=== PATIENT | female | born 1975 ===

== ENCOUNTER 2016-10-01 11:51 | Inpatient (IN) | payer OTHER, MEDICAID ==
[2016-10-01 11:51] VITALS: BMI 36.0
[2016-10-01 12:47] LABS: BASO # 0.1 K/uL (0.0-0.2); BASO % 0.6 % (0.0-2.0); EOS # 0.2 K/uL (0.0-0.7); EOS % 1.5 % (0.0-4.0); HEMATOCRIT 40.1 % (34.0-47.0); LYMPH # 4.1 K/uL (1.0-4.3); LYMPH % 31.7 % (20.0-40.0); MEAN CELL VOLUME 82.7 fL (81.0-99.0); MEAN CORPUSCULAR HEMOGLOBIN 27.1 pg (27.0-31.0); MEAN CORPUSCULAR HGB CONC 32.7 g/dL (33.0-37.0); MEAN PLATELET VOLUME 9.5 fL (7.2-11.7); MONO # 0.8 K/uL (0.0-0.8); MONO % 6.6 % (0.0-10.0); NRBC % 0.1 % (0.0-2.0); RED CELL DISTRIBUTION WIDTH 15.6 % (11.5-14.5); WHITE BLOOD COUNT 12.8 K/uL (4.8-10.8)
[2016-10-01 12:50] LABS: RBC URINE 219 /hpf (0-3); URINE BILIRUBIN NEGATIVE (NEGATIVE); URINE BLOOD 3+ (NEGATIVE); URINE CALCIUM OXALATE CRYSTALS FEW /hpf (<OCC); URINE COLOR Yellow (YELLOW); URINE GLUCOSE (UA) 2+ mg/dL (Normal); URINE KETONE TRACE mg/dL (NEGATIVE); URINE LEUKOCYTE ESTERASE NEG Leu/uL (Negative); URINE PROTEIN 1+ mg/dL (NEGATIVE); URINE UROBILINOGEN NORMAL mg/dL (0.2-1.0); WBC URINE 4 /hpf (0-5)
[2016-10-01 12:55] LABS: CHLORIDE 104 mmol/L (98-107)
[2016-10-01 12:56] LABS: POTASSIUM 3.9 mmol/L (3.6-5.2); SODIUM 140 mmol/L (132-148)
[2016-10-01 12:58] LABS: ALB/GLOB RATIO 1.1 (1.0-2.1); ALKALINE PHOSPHATASE 77 U/L (38-126); AST/SGOT 28 U/L (14-36); BILIRUBIN,TOTAL 0.9 mg/dL (0.2-1.3); BLOOD UREA NITROGEN 11 mg/dL (7-17); CARBON DIOXIDE 22 mmol/L (22-30); GFR AFRICAN-AMERICAN > 60; TOTAL PROTEIN 7.2 g/dL (6.3-8.3)
[2016-10-01 12:59] LABS: ALCOHOL SERUM < 10 mg/dl (0-10); ALT/SGPT 39 U/L (9-52); GLUCOSE,RANDOM 207 mg/dL (65-105)
--- NOTE | 2016-10-01 13:01 | C.PDOC ---
History Of Present Illness 41 year old female with a Hx of diabetes and depression who presents to the ER with a complaint of feeling overwhelmed and suicidal with a potential plan of jumping off building. Patient states she is trying to improve her life; she reports she is going back to school, does not have her child with her, and feels like it is all too much for her. Denies physical complaints at this time. Time Seen by Provider: 10/01/16 12:08 Chief Complaint (Nursing): Psychiatric Evaluation History Per: Patient History/Exam Limitations: no limitations Onset/Duration Of Symptoms: Days Current Symptoms Are (Timing): Still Present Suicide/Self Injury Attempted (Context): None Modifying Factor(s): None Severity: None Pain Scale Rating Of: 0 Associated Symptoms: Depression, Suicidal Thoughts, Suicidal Plan Involuntary Hold By: None Recent travel outside of the [place]: No Past Medical History Reviewed: Historical Data, Nursing Documentation, Vital Signs Vital Signs: Last Vital Signs Temp 98.2 F 10/01/16 11:57 Pulse 90 10/01/16 11:57 Resp 18 10/01/16 11:57 BP 142/89 10/01/16 11:57 Pulse Ox 100 10/01/16 14:00 - Medical History PMH: Anemia, Anxiety, Asthma, Back Problems (scoliosis), Bronchitis, CVA (left- sided), Depression, Diabetes, Gastritis, HTN, Hypercholesterolemia, Migraine, Peripheral Edema (LEFT LEG), Seizures, Chronic Pain (back) Surgical History: Endoscopy - [facility] Procedures GROUP PSYCHOTHERAPY (04/05/16) INDIVIDUAL PSYCHOTHERAPY, COGNITIVE-BEHAVIORAL (04/05/16) INDIVIDUAL PSYCHOTHERAPY, SUPPORTIVE (04/05/16) INJECT/INFUSE NEC (05/09/13) Family History: States: Unknown Family Hx, Diabetes, Hypertension - Social History Hx Tobacco Use: Yes Hx Alcohol Use: No Hx Substance Use: Yes - Immunization History Hx Tetanus Toxoid Vaccination: Yes (2 years ago) Hx Influenza Vaccination: Yes Hx Pneumococcal Vaccination: Yes Review Of Systems Constitutional: Negative for: Fever, Chills Gastrointestinal: Negative for: Nausea, Vomiting, Diarrhea Psych: Positive for: Depression, Suicidal ideation Physical Exam - Physical Exam Appears: Non-toxic Skin: Normal Color, Warm, Dry Head: Atraumatic, Normacephalic Oral Mucosa: Moist Chest: Symmetrical, No Tenderness Cardiovascular: Rhythm Regular, No Murmur Respiratory: Normal Breath Sounds, No Rales, No Rhonchi, No Wheezing Gastrointestinal/Abdominal: Soft, No Tenderness Neurological/Psych: Oriented x3, Normal Speech, Normal Cognition ED Course And Treatment - Laboratory Results Result Diagrams: 10/01/16 12:43 10/01/16 12:43 O2 Sat by Pulse Oximetry: 100 (Room air) Pulse Ox Interpretation: Normal Medical Decision Making Medical Decision Making: Plan: * Urine drug screen * Crisis consulted Patient accepted for psychiatric admission. Disposition - Disposition Disposition: HOSPITALIZED Disposition Time: 13:59 Condition: STABLE - Clinical Impression Clinical Impression: Suicidal ideation - Scribe Statement The provider has reviewed the documentation as recorded by the Scribe Jesus Alegria All medical record entries made by the Scribe were at my direction and personally dictated by me. I have reviewed the chart and agree that the record accurately reflects my personal performance of the history, physical exam, medical decision making, and the department course for this patient. I have also personally directed, reviewed, and agree with the discharge instructions and disposition. Decision To Admit - Pt Status Changed To: Hospital Disposition Of: Inpatient - Admit Certification Admit to Inpatient:: After my assessment, the patient will require hospitalization for at least two midnights. This is because of the severity of symptoms shown, intensity of services needed, and/or the medical risk in this patient being treated as an outpatient. - InPatient: Physician Admission Certification: I certify that this patient requires 2 or more midnights of care for the following reason:: suicidal ideations - . Bed Request Type: Psychiatry Patient Diagnosis: Suicidal ideation
--- NOTE | 2016-10-01 15:24 | PCM.BM ---
<Bianca King - Last Filed: 10/01/16 15:21> Treatment Plan Problems - Problems identified on initial assessmt Depression Date Initiated: 10/01/16 Time Initiated: 15:21 Assessment reference: NA Status: Active Suicidal Ideation Date Initiated: 10/01/16 Time Initiated: 15:24 Assessment reference: NA Status: Active Treatment assets and liabiliti Patient Assests: cooperative, ADL independent, physically healthy, cognitively intact Patient Liabilities: live alone, poor support system, substance abuse (THC) - Milieu Protocol Maintain good personal hygiene: daily Encourage regular showers, daily Remind patient to perform daily oral care, other Assist patient to perform ADL's (Self) Conduct patient checks and document Observation sheet: Q15 minutes (For Safety) Maintain personal safety: every shift Educate patient to report safety concerns to staff, every shift Monitor environment for contraband/sharps Medication safety: Monitor for expected outcome, potential side effects: every shift, Assess barriers to learning: every shift, Assess readiness for medication education: every shift <Margo Jarquin - Last Filed: 10/03/16 11:15> Family Contact Family involvement: Famliy/SO not involved - Goals for Treatment Patient goals for treatment: "I need an outpatient program." Discharge/Continuing Care - Education Needs Education Needs: Patient Medication, Patient Coping Skills - Discharge Discharge Criteria: Tolerates medication w/o severe side effects, Free of Suicidal thoughts, Reduction of target symptoms Discharge to:: Home - Treatment Team Participation Discussed with Family/SO: No Was Patient/Family/SO present at Treatment Team Meeting: Yes <Barbi Long - Last Filed: 10/03/16 14:34>
[2016-10-01] MEDS: Divalproex 250 mg DR Tab PO SCH (21:21)
[2016-10-02] MEDS: Divalproex 250 mg DR Tab PO SCH ×2 (10:22→17:33)
[2016-10-02] MEDS: Hydrocortisone 1% Cream (30 GM) TOP SCH (20:05)
--- NOTE | 2016-10-02 23:06 | PCM.PSYCH ---
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 Pt was admitted to the psych unit on after feeling "depressed". Pt was discharged with medication the following meds and f/u plan with the CR. Benztropine [Cogentin] 1 mg PO BID #60 tab Divalproex [Depakote DR (*BID*)] 500 mg PO BID #60 ect traZODone [Desyrel] 100 mg PO HS #30 tab Haloperidol [Haldol] 10 mg PO BID #60 tab Pt stated that she is not compliant with the treatment, because she is feeling good. She stated that she is smoking 2-3 blunts on daily basis, to keep herself calm. Pt came to the hospital yesterday because of worsening of depressive symptoms with suicidal ideation to jump from building . Pt states she continues to have suicidal ideation and command hallucinations telling her to " kill yourself" and "it's time to ." Pt also reports persistence of manic symptoms for the last 3-4 weeks such as insomnia, increased energy, distractibility, flight of ideas, difficulty concentrating. She feels like her "brain is scattered" which makes it difficult to complete tasks. Yesterday the patient also developed severe anxiety, paranoia, and sadness after knowing that her brother inlaw had an argument with his father. Pt reports like she feels someone or something is following her and is out to get her. Pt denies homicidal ideation and visual hallucinations. Current Medications: Active Medications Generic Name Dose Route Start Last Admin Trade Name Freq PRN Reason Stop Dose Admin Benztropine Mesylate 1 mg 10/01/16 19:00 10/02/16 10:23 Cogentin PO 1 mg DAILY DOLLY Administration Divalproex Sodium 250 mg 10/01/16 19:00 10/02/16 17:[address] PO 250 mg BID DOLLY Administration Haloperidol 5 mg 10/01/16 19:00 10/02/16 17:33 Haldol PO 5 mg BID DOLLY Administration Hydrocortisone 1 gm 10/02/16 18:00 10/02/16 20:05 Cortizone 1% Cream TOP 1 % BID DOLLY Administration Hydroxyzine HCl 25 mg 10/01/16 18:55 10/01/16 21:21 Atarax PO 25 mg Q6H PRN Administration Anxiety Pneumococcal Polyvalent Vaccine 0.5 ml 10/04/16 10:00 Pneumovax 23 Vaccine IM 10/04/16 10:01 .ONCE ONE Trazodone HCl 50 mg 10/01/16 18:51 Desyrel PO HS PRN Insomnia Past Psychiatric History - Past Psychiatric History Prior Professional Help: multiple inpat admission Prior Psychiatric Treatment: inpatient and out ptient treatment At [facility]: [facility] Duration: few days, last admission 03/2016 Nature of Treatment: meds management Explanation of prior treatment: non compliance with meds History of Abuse: denied History of ETOH/Drug Use: denied History of Family Illness: denied Pertinent Medical Hx (Current Medical&Sleep Prob, Allergies): Allergies Allergy/AdvReac Type Severity Reaction Status Date / Time Penicillins Allergy RASH Verified 10/01/16 12:00 lactose AdvReac VOMITING Verified 10/01/16 12:00 RX: No Known Home Med 10/01/16 Review of Systems - Review of Systems All systems: reviewed and no additional remarkable complaints except ( psychiatric symptoms in HPI) Mental Status Examination - Personal Presentation Personal Presentation: Looks stated age, Dressed appropriate to season - Affect Affect: Constricted - Motor Activity Motor Activity: Calm - Reliability in Providing Information Reliability in Providing Information: Fair - Speech Speech: Organized - Mood Mood: Depressed - Formal Thought Process Formal Thought Process: Hallucinations - Hallucinations/Delusions Hallucinations: Auditory - Cognitive Functions Orientation: Person, Place, Situation, Time Attention/Concentration: Attentive Abstract Thinking: [place] Judgement: Intact, as evidence by: Good judgement, Intact, as evidence by: Insight regarding need for hospitalization Memory: Recent intact, as evidence by: 3/3 object recall - Risk Additional comments: presently she denied SI, HI, intent or plan - Strength & Assets Inventory Strength & Assets Inventory: Intelligence, Family support, Education, Interests/ hobbies, Cooperative - Limitations Limitations: Other (chronic mental illness) DSM 5 DX - DSM 5 DSM 5 Diagnosis: Bipolar disorder, mixed type with psychotic features, Cannabis use d/o - Recommended/Plan of Treatment Treatment Recommendations and Plan of Treatment: - CBT - Psychoeducation - Group and supportive therapy - Depakote 250 PO BID - Trazodone 50 mg PO HS - Haldol 5 mg by mouth twice a day - PRN Meds Medication including alternative choices, benefits and s/e were discussed with the pt and pt verbalized understanding and in agreement to start the treatment. Projected ELOS: 5-7 days Prognosis: fair with treatment Discharge Plan and Discharge Criteria: Improvement in symptoms, no suicidal ideation, no bailee - Smoking Cessation Smoking Cessation Initiated: Yes
[2016-10-03 08:01] VITALS: RESP 16; TEMP 98; O2SAT 99
[2016-10-03] MEDS: Divalproex 250 mg DR Tab PO SCH ×2 (10:29→17:17)
[2016-10-03] MEDS: Hydrocortisone 1% Cream (30 GM) TOP SCH ×2 (10:32→17:17)
--- NOTE | 2016-10-03 11:16 | PCM.PYCHPN ---
Psychiatric Progress Note - Psychiatric Progress Note Patient seen today, length of contact: 16 min Patient Chief Complaint: I'm feeling better Problems Identified/Issues Discussed: Patient seen and evaluated, chart reviewed and discussed with the nurse. Today patient reports a bit improvement in her mood but still remained isolated , withdrawn and confined to her room. However she denies any suicidal ideation or homicidal ideation. She reports improvement in her agitation and irritability. She is taking medications and denies any side effects. Today patient signed 48 hours notice. Supportive therapy and psychoeducation were given. Medication Change: No Medical Record Reviewed: Yes Mental Status Examination - Cognitive Function Orientation: Person, Place, Situation, Time Memory: Intact Attention: WNL Concentration: Poor Association: WNL Fund of Knowledge: Poor - Mood Mood: Depressed, Anxious - Affect Affect: Constricted - Formal Thought Process Formal Thought Process: No Impairment - Suicidal Ideation Suicidal Ideation: No - Homicidal Ideation Homicidal Ideation: No Goal/Treatment Plan - Goal/Treatment Plan Need for Continued Stay: Discharge may exacerbated symptoms, Severe functional impairment Progress Toward Problem(s) and Goals/Treatment Plan: Bipolar disorder, mixed type with psychotic features, Cannabis use d/o - CBT - Psychoeducation - Group and supportive therapy - Depakote 250 PO BID - Trazodone 50 mg PO HS - d/c Haldol 5 mg by mouth twice a day - PRN Meds Medication including alternative choices, benefits and s/e were discussed with the pt and pt verbalized understanding and in agreement to start the treatment. - Smoking Cessation Smoking Cessation Initiated: No
[2016-10-03 15:48] VITALS: BP 124/77; PULSE 80
[2016-10-03] MEDS: Aluminum Hydroxide/Magnesium Hydroxide Susp (30 mL) PO PRN (19:55)
--- NOTE | 2016-10-04 09:53 | PCM.PYCHDC ---
Mental Status Examination - Mental Status Examination Orientation: Person, Place, Situation, Time Memory: Intact Mood: Neutral Affect: Constricted Speech: Soft Attention: WNL Concentration: WNL Association: WNL Fund of Knowledge: WNL Formal Thought Process: No Impairment Description of patient's judgement and insight: good, fair Psychotic Thoughts and Behaviors: deniers any AVH Suicidal Ideation: No Current Homicidal Ideation?: No Discharge Summary - Discharge Note Reason for Hospitalization: Pt is a 41 year old female, but currently , has 4 kids , currently living with a friend, unemployed but previously worked for a [employer], studying GED in school. Pt was admitted to the psych unit on after feeling "depressed". Pt was discharged with medication the following meds and f/u plan with the CR. Benztropine [Cogentin] 1 mg PO BID #60 tab Divalproex [Depakote DR (*BID*)] 500 mg PO BID #60 ect traZODone [Desyrel] 100 mg PO HS #30 tab Haloperidol [Haldol] 10 mg PO BID #60 tab Pt stated that she is not compliant with the treatment, because she is feeling good. She stated that she is smoking 2-3 blunts on daily basis, to keep herself calm. Pt came to the hospital yesterday because of worsening of depressive symptoms with suicidal ideation to jump from building . Pt states she continues to have suicidal ideation and command hallucinations telling her to " kill yourself" and "it's time to ." Pt also reports persistence of manic symptoms for the last 3-4 weeks such as insomnia, increased energy, distractibility, flight of ideas, difficulty concentrating. She feels like her "brain is scattered" which makes it difficult to complete tasks. Yesterday the patient also developed severe anxiety, paranoia, and sadness after knowing that her brother donna had an argument with his father. Pt reports like she feels someone or something is following her and is out to get her. Pt denies homicidal ideation and visual hallucinations. Psychiatric History (includes Medical, Family, Personal Hx): meds management Consultations:: List each consultation separately and include: 1. Reason for request. 2. Findings. 3. Follow-up Summary of Hospital Course include:: 1. Description of specific treatment plan utilized for patients during their course of treatmen. 2. Summarize the time- course for resolution of acute symptoms and/or regressed behaviors. 3. Describe issues identified and worked on during hospitalization. 4. Describe medication utilized. 5. Describe medical problems identified and treated. 6. Reassessment of suicide risk Summary of Hospital Course: During the course of her stay, patient (pt) started progressively improving and she no longer remained irritable, anxious and paranoid. Her mood and paranoia were improved and she started attending groups and meetings and started socializing. She signed a 48 hours notice. Patient denied any feelings of hopelessness, helplessness, and worthlessness, denied any problem with the sleep or appetite, denied suicidal ideation or homicidal ideation. Pt denied any auditory or visual hallucinations. Some changes were made in her current medications and patient was discharged on following medications. She tolerated these medications very well and denied any side effects. - Final Diagnosis (DSM 5) Condition upon Discharge: STABLE DSM 5: Bipolar disorder, mixed type with psychotic features, Cannabis use d/o Disposition: HOME/ ROUTINE Follow-up Treatment Plan: Education: Pt was educated and counseled about the risks and benefits of taking and not taking medications. Pt was educated and counseled about the risks of drinking and abusing drugs. Pt was educated and counseled to go to the ER or call 911 if pt develop suicidal ideation or homicidal ideation, worsening of symptoms or severe side effects of the meds. Prescriptions/Medication Reconciliation: Divalproex [Depakote DR] 250 mg PO BID 14 Days traZODone [Desyrel] 50 mg PO HS PRN #14 tab PRN Reason: Insomnia - Smoking Cessation Smoking Cessation Medication prescribed: No - Antipsychotic Medications Pt discharged on 2 or more routine antipsychotic medications: No
[2016-10-04] MEDS ORDERED: Pneumococcal 23-Valent Vaccine IM ONE (10:00)
[2016-10-04] MEDS: Hydrocortisone 1% Cream (30 GM) TOP SCH (10:09)
[2016-10-04] MEDS: Divalproex 250 mg DR Tab PO SCH (10:10)
[2016-10-04] MEDS: Aluminum Hydroxide/Magnesium Hydroxide Susp (30 mL) PO PRN (11:54)
== END 2016-10-04 12:25 | disposition home or self-care (01) | DRG 430 ==
LOC: C.ER 11:51 → C.5E 14:00
PROVIDERS: ADMIT Psychiatry & Neurology Psychiatry; ATTEND Psychiatry & Neurology Psychiatry
PROC: GZ3ZZZZ Medication Management (ICD-10-PCS; principal; 2016-10-01)
PROC: GZHZZZZ Group Psychotherapy (ICD-10-PCS; 2016-10-01)
PROC: GZ56ZZZ Individual Psychotherapy, Supportive (ICD-10-PCS; 2016-10-01)
DX: F31.64 Bipolar disorder, current episode mixed, severe, with psychotic features (principal); R45.851 Suicidal ideations; F12.90 Cannabis use, unspecified, uncomplicated; F17.210 Nicotine dependence, cigarettes, uncomplicated; Z91.14 Patient's other noncompliance with medication regimen; I10 Essential (primary) hypertension; E11.9 Type 2 diabetes mellitus without complications; J45.909 Unspecified asthma, uncomplicated; G89.29 Other chronic pain

== ENCOUNTER 2016-10-09 13:14 | Emergency (ER) | payer MEDICAID, OTHER ==
[2016-10-09 13:27] VITALS: RESP 18
[2016-10-09 13:34] VITALS: BMI 42.9
--- NOTE | 2016-10-09 13:36 | C.PDOC ---
History Of Present Illness 41 yr old female with PMHx of diverticulitis and internal hemorrhoids on colonoscopy 1 year ago, presents to ER with complaints of multiple episode of diarrhea since morning and 1 episode of diarrhea with bright red blood per rectum. Also reports of mild suprapubic tenderness and some dysuria. Patient denies fever, chills, chest pain, SOB, nausea, vomiting, hematuria, vaginal discharge or back pain. PMD: Dr. Villanueva. Time Seen by Provider: 10/09/16 13:19 Chief Complaint (Nursing): Female Genitourinary History Per: Patient History/Exam Limitations: no limitations Onset/Duration Of Symptoms: Sudden Onset (Since morning) Current Symptoms Are (Timing): Still Present Past Medical History Reviewed: Historical Data, Nursing Documentation, Vital Signs Vital Signs: Last Vital Signs Temp 98.2 F 10/09/16 13:18 Pulse 86 10/09/16 13:18 Resp 18 10/09/16 13:18 BP 134/90 10/09/16 13:18 Pulse Ox 99 10/09/16 16:13 - Medical History PMH: Anemia, Anxiety, Asthma, Back Problems (scoliosis), Bronchitis, CVA (left- sided), Depression (hosp depression x2), Diabetes, Gastritis, HTN, Hypercholesterolemia, Migraine, Peripheral Edema (LEFT LEG), Seizures (6 mo ago) , Chronic Pain (back) Surgical History: Endoscopy - [facility] Procedures GROUP PSYCHOTHERAPY (10/01/16) INDIVIDUAL PSYCHOTHERAPY, COGNITIVE-BEHAVIORAL (04/05/16) INDIVIDUAL PSYCHOTHERAPY, SUPPORTIVE (10/01/16) INJECT/INFUSE NEC (05/09/13) MEDICATION MANAGEMENT (10/01/16) Family History: States: Diabetes, Hypertension - Social History Hx Tobacco Use: Yes Hx Alcohol Use: No Hx Substance Use: Yes - Immunization History Hx Tetanus Toxoid Vaccination: Yes (2 years ago) Hx Influenza Vaccination: Yes Hx Pneumococcal Vaccination: Yes Review Of Systems Except As Marked, All Systems Reviewed And Found Negative. Constitutional: Negative for: Fever, Chills Cardiovascular: Negative for: Chest Pain, Palpitations, Orthopnea, Edema, Light Headedness Respiratory: Negative for: Shortness of Breath, SOB with Excertion, Wheezing Gastrointestinal: Positive for: Abdominal Pain (Mild superpubic ), Diarrhea ( Multiple episodes, 1 episode with bright red blood per rectum ). Negative for: Nausea, Vomiting Genitourinary: Positive for: Dysuria. Negative for: Hematuria, Vaginal Discharge Musculoskeletal: Negative for: Back Pain Neurological: Negative for: Weakness, Numbness Physical Exam - Physical Exam Appears: Well, Non-toxic, No Acute Distress Skin: Warm, Dry, No Rash Head: Atraumatic, Normacephalic Eye(s): bilateral: Normal Inspection, PERRL, EOMI Oral Mucosa: Moist Neck: Normal, Supple Chest: Symmetrical, No Tenderness Cardiovascular: Rhythm Regular, No Murmur Respiratory: Normal Breath Sounds, No Rales, No Rhonchi, No Wheezing Gastrointestinal/Abdominal: Soft, No Tenderness, No Distention, No Guarding, No Rebound Rectal: Rectal Tone (Normal ), Hemorrhoids (External ), Other (No gross blood. ) Back: Normal Inspection, No CVA Tenderness Extremity: Normal ROM, No Swelling Neurological/Psych: Oriented x3, Normal Speech, Normal Motor Gait: Steady ED Course And Treatment - Laboratory Results Result Diagrams: 10/09/16 13:50 10/09/16 13:50 O2 Sat by Pulse Oximetry: 99 (RA ) Pulse Ox Interpretation: Normal - CT Scan/US CT - Abd & Pelvis Other Rad Studies (CT/US): Read By Radiologist, Radiology Report Reviewed CT/US Interpretation: PROCEDURE: CT Abdomen and Pelvis with contrast. HISTORY : L sided abdominal pain. COMPARISON: CT abdomen pelvis without contrast performed 04/03/12. TECHNIQUE: Contrast dose: 100 cc Visipaque 320. Radiation dose: Total exam DLP = 1198.14 mGy-cm. This CT exam was performed using one or more of the following dose reduction techniques: Automated exposure control, adjustment of the mA and/or kV according to patient size, and/or use of iterative reconstruction technique. FINDINGS: LOWER THORAX: Unremarkable. LIVER: Hepatomegaly. Hypoattenuation of the liver compatible with hepatic steatosis. GALLBLADDER AND BILE DUCTS: Unremarkable. PANCREAS: Unremarkable. SPLEEN: 7 mm probable splenule. Otherwise unremarkable. ADRENALS: Unremarkable. KIDNEYS AND URETERS: The kidneys enhance symmetrically. No hydronephrosis or obstructing calculus identified. VASCULATURE: No aortic aneurysm. BOWEL: Stomach is nondistended. Lack of oral contrast limits evaluation for bowel pathology. Bowel loops appear within normal limits of caliber without evidence of obstruction. APPENDIX: The appendix appears within normal limits of caliber. No secondary signs of acute appendicitis. PERITONEUM: No significant free fluid. No definite free air. LYMPH NODES: No bulky adenopathy. BLADDER: Unremarkable. REPRODUCTIVE: The uterus is present. Probable bilateral ovarian cysts. BONES: No acute osseous abnormality is detected. OTHER FINDINGS: None. IMPRESSION: Hepatomegaly. Hepatic steatosis. Probable bilateral ovarian cysts. Pelvic ultrasound may be considered if indicated. Medical Decision Making Medical Decision Making: PLAN: * CT - Abd & Pelvis * CBC * CMP * HCG * Urinalysis * Pepcid PO * Toradol IVP * Sodium Chloride IV 2:40PM Labs grossly normal but UA consistent with uti 4:00PM CT negative. Patient has had recent colonoscopy. Hgb WNL. No additional bowel movements in ED. Abdomen soft NT/ND on reevaluation. Vitals WNL. Monitored for 3 hours. Dc home to follow-up with GI. Made aware of ovarian cysts and reports that she has regular playground equipment erector follow-up with normal pap last year Disposition - Disposition Disposition: HOME/ ROUTINE Disposition Time: 16:00 Condition: FAIR Additional Instructions: Follow up with your PMD and GI within 2 days. Follow up with OB for ovarian cysts. Return to ED if condition worsens. Take full course of antibiotics. Motrin for pain. Pyridium as needed for pain. Prescriptions: Nitrofurantoin Macrocrystals [Macrobid] 100 mg PO BID #10 cap Phenazopyridine HCl [Pyridium] 100 mg PO TID PRN #30 tablet PRN Reason: Pain, Mild (1-3) Instructions: Ovarian Cyst (ED), Rectal Bleeding (ED), Urinary Tract Infection in Women (ED) - Clinical Impression Clinical Impression: UTI (urinary tract infection), Blood in stool - Scribe Statement The provider has reviewed the documentation as recorded by the Uriibe Ingrid Swanson Provider Attestation: All medical record entries made by the Uriibpiero were at my direction and personally dictated by me. I have reviewed the chart and agree that the record accurately reflects my personal performance of the history, physical exam, medical decision making, and the department course for this patient. I have also personally directed, reviewed, and agree with the discharge instructions and disposition.
[2016-10-09] MEDS ORDERED: Sodium Chloride 0.9% 1,000 ML IV ONE (13:37)
[2016-10-09] MEDS ORDERED: Sodium Chloride 0.9% 1,000 ML ONE (13:53)
[2016-10-09 13:56] LABS: BASO # 0.1 K/uL (0.0-0.2); BASO % 0.8 % (0.0-2.0); EOS # 0.1 K/uL (0.0-0.7); EOS % 1.5 % (0.0-4.0); HEMATOCRIT 38.3 % (34.0-47.0); MEAN CELL VOLUME 83.5 fL (81.0-99.0); MEAN CORPUSCULAR HGB CONC 32.3 g/dL (33.0-37.0); MEAN PLATELET VOLUME 9.5 fL (7.2-11.7); MONO # 0.7 K/uL (0.0-0.8); MONO % 7.6 % (0.0-10.0); RED CELL DISTRIBUTION WIDTH 15.4 % (11.5-14.5); WHITE BLOOD COUNT 8.9 K/uL (4.8-10.8)
[2016-10-09 14:04] LABS: CHLORIDE 105 mmol/L (98-107); POTASSIUM 3.8 mmol/L (3.6-5.2); SODIUM 138 mmol/L (132-148)
[2016-10-09 14:05] LABS: INR 0.9
[2016-10-09 14:06] LABS: AST/SGOT 23 U/L (14-36); BILIRUBIN,TOTAL 0.6 mg/dL (0.2-1.3); CARBON DIOXIDE 24 mmol/L (22-30); GFR AFRICAN-AMERICAN > 60
[2016-10-09 14:07] LABS: ALB/GLOB RATIO 1.1 (1.0-2.1); ALKALINE PHOSPHATASE 82 U/L (38-126); ALT/SGPT 36 U/L (9-52); BLOOD UREA NITROGEN 9 mg/dL (7-17); CALCIUM 8.8 mg/dl (8.6-10.4); GLUCOSE,RANDOM 166 mg/dL (65-105); TOTAL PROTEIN 6.7 g/dL (6.3-8.3)
[2016-10-09 14:38] LABS: RBC URINE 1 /hpf (0-3); URINE BACTERIA RARE (<OCC); URINE BILIRUBIN NEGATIVE (NEGATIVE); URINE BLOOD NEGATIVE (NEGATIVE); URINE COLOR Yellow (YELLOW); URINE GLUCOSE (UA) NORMAL (Normal); URINE KETONE NEGATIVE (NEGATIVE); URINE LEUKOCYTE ESTERASE 1+ Leu/uL (Negative); URINE PROTEIN NEGATIVE (NEGATIVE); URINE UROBILINOGEN NORMAL mg/dL (0.2-1.0); WBC URINE 16 /hpf (0-5)
[2016-10-09] MEDS ORDERED: Iodixanol 320 MG/ML 100 ML BOTTLE IV ONE (14:58)
--- NOTE | 2016-10-09 15:57 | CT ---
PROCEDURE: CT Abdomen and Pelvis with contrast HISTORY: L sided abdominal pain COMPARISON: CT abdomen pelvis without contrast performed 04/03/12 TECHNIQUE: Contrast dose: 100 cc Visipaque 320 Radiation dose: Total exam DLP = 1198.14 mGy-cm. This CT exam was performed using one or more of the following dose reduction techniques: Automated exposure control, adjustment of the mA and/or kV according to patient size, and/or use of iterative reconstruction technique. FINDINGS: LOWER THORAX: Unremarkable. LIVER: Hepatomegaly. Hypoattenuation of the liver compatible with hepatic steatosis. GALLBLADDER AND BILE DUCTS: Unremarkable. PANCREAS: Unremarkable. SPLEEN: 7 mm probable splenule. Otherwise unremarkable. ADRENALS: Unremarkable. KIDNEYS AND URETERS: The kidneys enhance symmetrically. No hydronephrosis or obstructing calculus identified. VASCULATURE: No aortic aneurysm. BOWEL: Stomach is nondistended. Lack of oral contrast limits evaluation for bowel pathology. Bowel loops appear within normal limits of caliber without evidence of obstruction. APPENDIX: The appendix appears within normal limits of caliber. No secondary signs of acute appendicitis. PERITONEUM: No significant free fluid. No definite free air. LYMPH NODES: No bulky adenopathy. BLADDER: Unremarkable. REPRODUCTIVE: The uterus is present. Probable bilateral ovarian cysts. BONES: No acute osseous abnormality is detected. OTHER FINDINGS: None. IMPRESSION: Hepatomegaly. Hepatic steatosis. Probable bilateral ovarian cysts. Pelvic ultrasound may be considered if indicated.
[2016-10-09 16:46] VITALS: BP 122/92; PULSE 78; TEMP 97.5; O2SAT 100
== END 2016-10-09 16:50 | disposition home or self-care (01) ==
LOC: C.ER 13:14
DX: N39.0 Urinary tract infection, site not specified (principal); K92.1 Melena
CPT/HCPCS: 74177; 80053; 81001; 84703; 85025; 85610; 85730; 96361; 96374; 99285; J1885; J7040; Q9967

== ENCOUNTER 2016-11-13 20:21 | Emergency (ER) | payer OTHER ==
[2016-11-13 20:22] VITALS: BMI 42.9
[2016-11-13] MEDS ORDERED: Sodium Chloride 0.9% 1,000 ML IV ONE (20:44)
--- NOTE | 2016-11-13 20:56 | C.PDOC ---
History Of Present Illness 41 year old female who presents to the ER with a complaint of feeling dizzy this morning while writing in her journal and becoming increasingly anxious. Patient has a Hx of bipolar disorder and schizophrenia; she notes she has been under a lot of emotional stress related to the pentecostal. Patient notes having a headache all day today and has not taking any tylenol or motrin because she is trying not to take any medications. Patient is diabetic and reports she did not take her medication this morning but took it in the afternoon and states she does not check her finger sticks at home. Denies fever or chills. Time Seen by Provider: 11/13/16 20:37 Chief Complaint (Nursing): Weakness/Neurological Deficit History Per: Patient History/Exam Limitations: no limitations Onset/Duration Of Symptoms: Hrs Current Symptoms Are (Timing): Still Present Activity At Onset Of Symptoms: Sitting Seizure Or Post-ictal Symptoms: None Possible Causative Factor(s): Other (Not known) Fall Associated With With Symptoms: No Recent travel outside of the [place]: No - Symptoms Of CVA Associated Symptoms: denies: Impaired Speech, Seizure Activity, New Vision Deficit(Left), New Vision Deficit(Right), Decreased Ability To Walk, New Confusion Past Medical History Reviewed: Historical Data, Nursing Documentation, Vital Signs Vital Signs: Last Vital Signs Temp 98.4 F 11/13/16 20:26 Pulse 91 H 11/13/16 20:26 Resp 20 11/13/16 20:26 BP 124/81 11/13/16 20:26 Pulse Ox 100 11/13/16 21:06 - Medical History PMH: Anemia, Anxiety, Asthma, Back Problems (scoliosis), Bronchitis, CVA (left- sided), Depression (hosp depression x2), Diabetes, Gastritis, HTN, Hypercholesterolemia, Migraine, Peripheral Edema (LEFT LEG), Seizures (6 mo ago) , Chronic Pain (back) Surgical History: Endoscopy - [facility] Procedures GROUP PSYCHOTHERAPY (10/01/16) INDIVIDUAL PSYCHOTHERAPY, COGNITIVE-BEHAVIORAL (04/05/16) INDIVIDUAL PSYCHOTHERAPY, SUPPORTIVE (10/01/16) INJECT/INFUSE NEC (05/09/13) MEDICATION MANAGEMENT (10/01/16) Family History: States: Diabetes, Hypertension - Social History Hx Tobacco Use: Yes Hx Alcohol Use: No Hx Substance Use: No - Immunization History Hx Tetanus Toxoid Vaccination: Yes (2 years ago) Hx Influenza Vaccination: Yes Hx Pneumococcal Vaccination: Yes Review Of Systems Constitutional: Negative for: Fever, Chills Gastrointestinal: Negative for: Nausea, Vomiting Neurological: Positive for: Headache, Dizziness Psych: Positive for: Anxiety Physical Exam - Physical Exam Appears: Non-toxic, No Acute Distress, Other (Pleasant, Obese) Skin: Normal Color, Warm, Dry Head: Atraumatic, Normacephalic Eye(s): bilateral: Normal Inspection, PERRL, EOMI Oral Mucosa: Moist Neck: Normal, Supple Chest: Symmetrical, No Tenderness Cardiovascular: Rhythm Regular Respiratory: Normal Breath Sounds, No Rales, No Rhonchi, No Wheezing Gastrointestinal/Abdominal: Soft, No Tenderness Extremity: Normal ROM (x4) Neurological/Psych: Oriented x3, Normal Speech, Normal Cognition ED Course And Treatment - Laboratory Results Result Diagrams: 11/13/16 21:03 11/13/16 21:03 Lab Interpretation: Normal (UA neg.) Urine POC: Negative ECG: Interpreted By Me ECG Rhythm: Sinus Rhythm ECG Interpretation: Normal Rate From EC O2 Sat by Pulse Oximetry: 100 (Room air) Pulse Ox Interpretation: Normal Progress Note: EKG, blood work, and urinalysis ordered. IV fluids and tylenol administered. Reevaluation Time: 22:33 Medical Decision Making Medical Decision Making: anxiety reaction, h/o schizo/bipolar exam and w/u neg. Disposition Doctor Will See Patient In The: Office Counseled Patient/Family Regarding: Studies Performed, Diagnosis - Disposition Disposition: HOME/ ROUTINE Disposition Time: 22:33 Condition: GOOD Forms: [facility] (Australian) - Clinical Impression Clinical Impression: Anxiety - Scribe Statement The provider has reviewed the documentation as recorded by the Uriibpiero Alegria All medical record entries made by the Uriibpiero were at my direction and personally dictated by me. I have reviewed the chart and agree that the record accurately reflects my personal performance of the history, physical exam, medical decision making, and the department course for this patient. I have also personally directed, reviewed, and agree with the discharge instructions and disposition.
[2016-11-13 21:06] LABS: BASO # 0.1 K/uL (0.0-0.2); EOS # 0.1 K/uL (0.0-0.7); EOS % 1.3 % (0.0-4.0); LYMPH # 3.8 K/uL (1.0-4.3); LYMPH % 34.7 % (20.0-40.0); MEAN CELL VOLUME 81.7 fL (81.0-99.0); MEAN CORPUSCULAR HEMOGLOBIN 27.3 pg (27.0-31.0); MEAN CORPUSCULAR HGB CONC 33.4 g/dL (33.0-37.0); MEAN PLATELET VOLUME 9.1 fL (7.2-11.7); MONO # 0.7 K/uL (0.0-0.8); MONO % 6.6 % (0.0-10.0); RED CELL DISTRIBUTION WIDTH 14.5 % (11.5-14.5); WHITE BLOOD COUNT 10.8 K/uL (4.8-10.8)
[2016-11-13] MEDS ORDERED: Sodium Chloride 0.9% 1,000 ML ONE (21:07)
[2016-11-13 21:14] LABS: CHLORIDE 100 mmol/L (98-107)
[2016-11-13 21:15] LABS: SODIUM 140 mmol/L (132-148)
[2016-11-13 21:17] LABS: ALB/GLOB RATIO 1.2 (1.0-2.1); ALKALINE PHOSPHATASE 69 U/L (38-126); ALT/SGPT 30 U/L (9-52); AST/SGOT 19 U/L (14-36); BILIRUBIN,TOTAL 0.5 mg/dL (0.2-1.3); BLOOD UREA NITROGEN 10 mg/dL (7-17); CARBON DIOXIDE 25 mmol/L (22-30); GFR AFRICAN-AMERICAN > 60; TOTAL PROTEIN 7.3 g/dL (6.3-8.3)
[2016-11-13 21:18] LABS: CALCIUM 9.3 mg/dl (8.6-10.4); GLUCOSE,RANDOM 107 mg/dL (65-105)
[2016-11-13 21:50] LABS: RBC URINE 1 /hpf (0-3); URINE BACTERIA OCC (<OCC); URINE BILIRUBIN NEGATIVE (NEGATIVE); URINE BLOOD NEGATIVE (NEGATIVE); URINE COLOR Yellow (YELLOW); URINE GLUCOSE (UA) NORMAL (Normal); URINE KETONE NEGATIVE (NEGATIVE); URINE LEUKOCYTE ESTERASE TRACE Leu/uL (Negative); URINE PROTEIN NEGATIVE (NEGATIVE); URINE UROBILINOGEN NORMAL mg/dL (0.2-1.0); WBC URINE 5 /hpf (0-5)
[2016-11-13 22:33] VITALS: BP 113/78; PULSE 75; RESP 18; TEMP 97.3
[2016-11-13 22:34] VITALS: O2SAT 100
== END 2016-11-13 22:47 | disposition home or self-care (01) ==
LOC: C.ER 20:21
DX: F41.9 Anxiety disorder, unspecified (principal)
CPT/HCPCS: 80053; 80324; 80345; 80346; 80349; 80353; 80358; 80361; 81001; 82009; 83992; 84703; 85025; 96360; 99285; J7040

== ENCOUNTER 2016-11-14 04:18 | Inpatient (IN) | payer MEDICAID, OTHER ==
[2016-11-14 04:37] VITALS: BMI 33.3
--- NOTE | 2016-11-14 04:38 | C.PDOC ---
History Of Present Illness 41 year old female who presents to the ER with a complaint of becoming increasingly anxious. Patient was seen in the ER earlier today, she went home and took her depakote which she takes to help her sleep; however, she became anxious which prompted ER visit. Denies physical complaints at this time. Time Seen by Provider: 11/14/16 04:33 Chief Complaint (Nursing): Psychiatric Evaluation History Per: Patient History/Exam Limitations: no limitations Onset/Duration Of Symptoms: Hrs Current Symptoms Are (Timing): Still Present Suicide/Self Injury Attempted (Context): None Modifying Factor(s): None Associated Symptoms: Anxiety. denies: Depression, Suicidal Thoughts, Suicidal Plan Involuntary Hold By: None Recent travel outside of the [place]: No Past Medical History Reviewed: Historical Data, Nursing Documentation, Vital Signs Vital Signs: Last Vital Signs Temp 98.5 F 11/14/16 04:32 Pulse 81 11/14/16 04:32 Resp 20 11/14/16 04:32 BP 113/77 11/14/16 04:32 Pulse Ox 97 11/14/16 04:38 - Medical History PMH: Anemia, Anxiety, Asthma, Back Problems (scoliosis), Bronchitis, CVA (left- sided), Depression (hosp depression x2), Diabetes, Gastritis, HTN, Hypercholesterolemia, Migraine, Peripheral Edema (LEFT LEG), Seizures (6 mo ago) , Chronic Pain (back) Surgical History: Endoscopy - [facility] Procedures GROUP PSYCHOTHERAPY (10/01/16) INDIVIDUAL PSYCHOTHERAPY, COGNITIVE-BEHAVIORAL (04/05/16) INDIVIDUAL PSYCHOTHERAPY, SUPPORTIVE (10/01/16) INJECT/INFUSE NEC (05/09/13) MEDICATION MANAGEMENT (10/01/16) Family History: States: Unknown Family Hx, Diabetes, Hypertension - Social History Hx Tobacco Use: Yes Hx Alcohol Use: No Hx Substance Use: No - Immunization History Hx Tetanus Toxoid Vaccination: Yes (2 years ago) Hx Influenza Vaccination: Yes Hx Pneumococcal Vaccination: Yes Review Of Systems Constitutional: Negative for: Fever, Chills Gastrointestinal: Negative for: Nausea, Vomiting, Diarrhea Psych: Positive for: Anxiety Physical Exam - Physical Exam Appears: Non-toxic, No Acute Distress, Other (Asleep, pressured speech) Skin: Normal Color, Warm, Dry Head: Atraumatic, Normacephalic Oral Mucosa: Moist Chest: Symmetrical, No Tenderness Cardiovascular: Rhythm Regular, No Murmur Respiratory: Normal Breath Sounds, No Rales, No Rhonchi, No Wheezing Gastrointestinal/Abdominal: Soft, No Tenderness Extremity: Normal ROM (x4) Neurological/Psych: Oriented x3, Normal Speech, Normal Cognition ED Course And Treatment O2 Sat by Pulse Oximetry: 97 (Room air) Pulse Ox Interpretation: Normal Progress Note: Xanax administered. Urine drug screen ordered. Medical Decision Making Medical Decision Making: anxiety not improved with Depakote taken @ home tonight. 2nd ED visit in 24 hrs defer repeat w/u, just done a few hours ago. Disposition Doctor Will See Patient In The: Office Counseled Patient/Family Regarding: Studies Performed, Diagnosis - Disposition Referrals: Artem Villanueva MD [Staff Provider] - Disposition: HOME/ ROUTINE Disposition Time: 04:38 Condition: GOOD Additional Instructions: continue your Depakote as normal Follow-up with Dr. Villanueva as usual. Instructions: Bipolar Disorder (ED), Anxiety (ED) Forms: [facility] [employer] (Uzbek) - Clinical Impression Clinical Impression: Anxiety - Scribe Statement The provider has reviewed the documentation as recorded by the Scribpiero Alegria All medical record entries made by the Scribe were at my direction and personally dictated by me. I have reviewed the chart and agree that the record accurately reflects my personal performance of the history, physical exam, medical decision making, and the department course for this patient. I have also personally directed, reviewed, and agree with the discharge instructions and disposition.
--- NOTE | 2016-11-14 12:08 | PCM.BM ---
<Bianca King - Last Filed: 11/14/16 12:05> Treatment Plan Problems - Problems identified on initial assessmt Depression Date Initiated: 11/14/16 Time Initiated: 11:20 Assessment reference: NA Status: Active Auditoty Hallucinations Date Initiated: 11/14/16 Time Initiated: 11:20 Assessment reference: NA Status: Active Treatment assets and liabiliti Patient Assests: adapts well, cooperative, ADL independent, physically healthy, negotiates basic needs, cognitively intact Patient Liabilities: live alone (lives with daughter), financial problems ( unemployed), substance abuse (None), medical problems (Asthma, Bronchitis, Scoliosis, Gastritis, Migraine, Seizure) - Milieu Protocol Maintain good personal hygiene: daily Encourage regular showers, daily Remind patient to perform daily oral care, other Assist patient to perform ADL's (Self) Conduct patient checks and document Observation sheet: Q15 minutes (Safety) Maintain personal safety: every shift Educate patient to report safety concerns to staff, every shift Monitor environment for contraband/sharps Medication safety: Monitor for expected outcome, potential side effects: every shift, Assess barriers to learning: every shift, Assess readiness for medication education: every shift <Luis A Diaz - Last Filed: 11/15/16 13:07> - Diagnosis (1) Major depression Status: Acute Interventions: 11/15/16 13:08 * Assess/adjust medications daily and /or as needed * See patient on an individual basis 7x/week to assess symptoms of depression * Monitor for side effects & effectiveness of medications * <Benja Kincaid - Last Filed: 11/16/16 11:07> - Diagnosis (1) Major depression Status: Acute Interventions: 11/15/16 13:08 * Assess/adjust medications daily and /or as needed * See patient on an individual basis 7x/week to assess symptoms of depression * Monitor for side effects & effectiveness of medications * 11/16/16 11:08 <Margo Jarquin - Last Filed: 11/16/16 11:13> Family Contact Family involvement: Family/SO is involved Family contact: Patient declines to allow family contact at present - Goals for Treatment Patient goals for treatment: "I want an outpatient program." Discharge/Continuing Care - Education Needs Education Needs: Patient Medication, Patient Coping Skills - Discharge Discharge Criteria: Tolerates medication w/o severe side effects, Free of Suicidal thoughts, Reduction of target symptoms Discharge to:: Home - Treatment Team Participation Discussed with Family/SO: Yes Was Patient/Family/SO present at Treatment Team Meeting: No
[2016-11-14] MEDS ORDERED: Albuterol HFA 90 mcg/actuation (8 g) INH PRN (13:44)
--- NOTE | 2016-11-14 15:12 | PCM.PSYCH ---
Initial Psychiatric Evaluation - Initial Psychiatric Evaluation Type of Admission: Voluntary Legal Status: Capacity Chief Complaint (in patient's own words): "I feel like is coming to get me" History of Present Illness and Precipitating Events: Pt is seen, chart reviewed, case discussed with staff. Pt is a 41 year old female with a PMH of bipolar disorder, DM, asthma and scoliosis who presented to the ED 11/14/16 for excessive, worsening anxiety and SI. She visited the ED earlier on the same date without admission but returned within 24 hours because her symptoms had not improved. She is as of May 2016 and has 4 children aged 22, 19, 18 and 5. She lives with her sister, 2 of her sister's children, and her 2 oldest children. She does not work; she collects an income through [employer] and food stamps. She was in the process of studying to obtain her GED but states that she recently stopped attending class because "it was too much for me." Pt has a history of psychiatric admission at [facility] on 10/01/16 during which she chose to leave suddenly. She reports a history of "a couple" of suicide attempts but could not recall details. She reports to regularly take Depakote as prescribed. She denies family psychiatric history but reports that her father was an alcoholic. Pt denies current use of drugs and alcohol. She reports history of habitual marijuana use (last use 2 months ago), sporadic use of ecstasy and cocaine ( last use "a few months ago"), and sporadic alcohol use (last use 3-4 months ago) . She currently denies symptoms of withdrawal. Pt reports to have recently experienced delusions of grandeur and of methodist nature, audio hallucinations of command type, excessive anger, insomnia and paranoia. She is not currently experiencing hallucinations or delusions at this moment. She denies SI, HI and symptoms of bailee. Support and psychoeducation given, CBT and VA used briefly. After care discussed. Pt has previously been seen at [facility] and would like to be referred back upon discharge. Current Medications: Active Medications Generic Name Dose Route Start Last Admin Trade Name Freq PRN Reason Stop Dose Admin Albuterol 1 puff 11/14/16 13:44 Ventolin Hfa 90 Mcg/Actuation (8 G) INH RQ4 PRN sob Divalproex Sodium 250 mg 11/14/16 18:[address] PO BID [facility] Escitalopram Oxalate 5 mg 11/14/16 18:00 Lexapro PO QPM DOLLY Hydroxyzine HCl 50 mg 11/14/16 12:36 Atarax PO Q6H PRN Anxiety Ibuprofen 600 mg 11/14/16 12:36 Motrin Tab PO Q6H PRN Pain, moderate (4-7) Metformin HCl 500 mg 11/14/16 18:00 Glucophage PO BID DOLLY Pneumococcal Polyvalent Vaccine 0.5 ml 11/17/16 10:00 Pneumovax 23 Vaccine IM 11/17/16 10:01 .ONCE ONE Trazodone HCl 100 mg 11/14/16 12:36 Desyrel PO HS PRN Insomnia Past Psychiatric History - Past Psychiatric History Previous Treatment History: Inpatient At [facility]: [facility] Date: 10/01/16 Duration: 3 days History of ETOH/Drug Use: Prior marijuana use disorder, alcohol use disorder, sporadic use of cocaine and ecstasy History of Family Illness: Alcohol use disorder in father Pertinent Medical Hx (Current Medical&Sleep Prob, Allergies): Allergies Allergy/AdvReac Type Severity Reaction Status Date / Time Penicillins Allergy RASH Verified 11/13/16 20:32 lactose AdvReac VOMITING Verified 11/13/16 20:32 Divalproex [Depakote DR] 250 mg PO BID 14 Days tcp 10/04/16 MetFORMIN 500 mg PO BID 11/13/16 Review of Systems - Neurological Neurological: UNREMARKABLE - Psychiatric Psychiatric: As Per HPI, Anxiety, Auditory Hallucinations, Depression, Difficulty Concentrating, Irritability, Paranoia. absent: Homicidal Ideation, Suicidal Ideation Mental Status Examination - Personal Presentation Personal Presentation: Looks stated age - Affect Affect: Blunted, Depressed - Motor Activity Motor Activity: Psychomotor Retardation - Reliability in Providing Information Reliability in Providing Information: Fair - Speech Speech: Organized, Relevant, Coherent Additional comments: Slowed - Mood Mood: Depressed, Anxious - Formal Thought Process Formal Thought Process: Hallucinations, Delusions - Hallucinations/Delusions Hallucinations: Auditory Delusions: Granduer - Obsessions/Compulsions Obsessions: None Compulsions: None - Cognitive Functions Orientation: Person, Place, Situation, Time Attention/Concentration: Easily distracted Estimate of Intelligence: Average Judgement: Intact, as evidence by: Insight regarding need for hospitalization Memory: Recent intact, as evidence by: Ability to recall events of the day, Remote impaired as evidenced by: Inability to recall sig life events - Risk Risk: Diminished functioning - Strength & Assets Inventory Strength & Assets Inventory: Family support, Life experience - Limitations Limitations: Other DSM 5 DX - DSM 5 DSM 5 Diagnosis: Major depressive disorder, recurrent, severe with psychotic features r/o Bipolar disorder, mixed type with psychotic features - Recommended/Plan of Treatment Treatment Recommendations and Plan of Treatment: Major depressive disorder, recurrent, severe with psychotic features Support and psychoeducation daily Attend groups and activities daily After care planning with Depakote 250 mg PO BID DOLLY Lexapro 5 mg PO QPM DOLLY Atarax 50 mg PO Q6H PRN Desyrel 100 mg PO HS PRN 32 min Projected ELOS: 6 days Prognosis: good w treatment - Smoking Cessation Smoking Cessation Initiated: No
[2016-11-14] MEDS: Divalproex 250 mg DR Tab PO SCH (17:50)
[2016-11-14] MEDS: Hydrocortisone 1% Cream (30 GM) TOP PRN (22:28)
[2016-11-15] MEDS: Divalproex 250 mg DR Tab PO SCH ×2 (10:30→17:58)
--- NOTE | 2016-11-15 13:21 | PCM.PYCHPN ---
Psychiatric Progress Note - Psychiatric Progress Note Patient seen today, length of contact: 15 minutes Patient Chief Complaint: I'm still stressed Problems Identified/Issues Discussed: Patient seen. Chart reviewed. Case discussed with the staff. Issues related to illness and treatment were discussed with the patient. Reported compliant with treatment with no adverse affects. Follow-up care discussed with the patient. At the time of evaluation, patient was awake alert oriented 3, had no delusions , no auditory or visual hallucinations, no suicidal ideations or homicidal ideations. Medical Problems: Diabetes mellitus Diagnostic Results: Reviewed DSM 5 Symptoms Update: Improving with treatment Medication Change: No Medical Record Reviewed: Yes Mental Status Examination - Cognitive Function Orientation: Person, Place, Situation, Time Memory: Intact Attention: WNL Concentration: WNL Association: WNL Fund of Knowledge: [facility] Decription of patient's judgement and insights: Fair - Mood Mood: Depressed - Affect Affect: Depressed - Speech Speech: Appropriate - Formal Thought Process Formal Thought Process: No Impairment Psychotic Thoughts and Behaviors: None - Suicidal Ideation Suicidal Ideation: No - Homicidal Ideation Homicidal Ideation: No Goal/Treatment Plan - Goal/Treatment Plan Need for Continued Stay: Remain at risks for inpatient hospitalization, Discharge may exacerbated symptoms, Severe functional impairment Progress Toward Problem(s) and Goals/Treatment Plan: Patient education Supportive therapy Continue treatment as before Estimated Date of D/C: 11/22/16 - Smoking Cessation Smoking Cessation Initiated: No
[2016-11-16] MEDS: Divalproex 250 mg DR Tab PO SCH ×2 (09:47→10:09)
--- NOTE | 2016-11-16 13:34 | PCM.PYCHPN ---
Psychiatric Progress Note - Psychiatric Progress Note Patient seen today, length of contact: 15 minutes Patient Chief Complaint: I'm still stressed. Since yesterday I have suicidal ideations with plan to jump from the roof of the building. But I'm feeling safe in the hospital. Problems Identified/Issues Discussed: Patient seen. Chart reviewed. Case discussed with the staff. Issues related to illness and treatment were discussed with the patient. Reported compliant with treatment with no adverse affects. Follow-up care discussed with the patient. Patient reported that she started developing suicidal ideations since yesterday with plan to jump from the roof of a building, but feeling safe in the hospital. Also reported that in case of worsening of suicidal ideations, she will contact for safety and cocaine nursing staff or any available employee at that time. At the time of evaluation, patient was awake alert oriented 3, had no delusions , no auditory or visual hallucinations, no suicidal ideations or homicidal ideations. Medical Problems: Diabetes mellitus Diagnostic Results: Reviewed DSM 5 Symptoms Update: Improving with treatment Medication Change: Yes (Dose of Depakote increased to 500 mg twice a day) Medical Record Reviewed: Yes Mental Status Examination - Cognitive Function Orientation: Person, Place, Situation, Time Memory: Intact Attention: WNL Concentration: WNL Association: WNL Fund of Knowledge: [facility] Decription of patient's judgement and insights: Fair - Mood Mood: Depressed - Affect Affect: Depressed - Speech Speech: Appropriate - Formal Thought Process Formal Thought Process: No Impairment Psychotic Thoughts and Behaviors: None - Suicidal Ideation Suicidal Ideation: No - Homicidal Ideation Homicidal Ideation: No Goal/Treatment Plan - Goal/Treatment Plan Need for Continued Stay: Remain at risks for inpatient hospitalization, Discharge may exacerbated symptoms, Severe functional impairment Progress Toward Problem(s) and Goals/Treatment Plan: Patient education Supportive therapy Patient doesn't want trazodone. We will DC trazodone. Offered Seroquel. Risk and benefits of Seroquel discussed with the patient. Patient understood and agreed. We'll start Seroquel 50 mg at night and will increase accordingly if necessary. Continue rest of treatment as before Estimated Date of D/C: 11/22/16 - Smoking Cessation Smoking Cessation Initiated: No
[2016-11-16] MEDS: Divalproex 500 mg DR Tab PO SCH (17:19)
[2016-11-17] MEDS: Divalproex 500 mg DR Tab PO SCH ×2 (09:55→17:55)
[2016-11-17] MEDS ORDERED: Pneumococcal 23-Valent Vaccine IM ONE (10:00)
--- NOTE | 2016-11-17 13:19 | PCM.PYCHPN ---
Psychiatric Progress Note - Psychiatric Progress Note Patient seen today, length of contact: 15 minutes Patient Chief Complaint: I'm feeling better, no suicidal ideations but time feeling tired. Problems Identified/Issues Discussed: Patient seen. Chart reviewed. Case discussed with the staff. Issues related to illness and treatment were discussed with the patient. Reported compliant with treatment with no adverse affects. Follow-up care discussed with the patient. Patient reported that she she is feeling much better , no suicidal ideations but feels tired after increasing the Depakote dose . At the time of evaluation, patient was awake alert oriented 3, had no delusions , no auditory or visual hallucinations, no suicidal ideations or homicidal ideations. Medical Problems: Diabetes mellitus Diagnostic Results: Reviewed DSM 5 Symptoms Update: Improving with treatment Medication Change: No Medical Record Reviewed: Yes Mental Status Examination - Cognitive Function Orientation: Person, Place, Situation, Time Memory: Intact Attention: WNL Concentration: WNL Association: [facility] Fund of Knowledge: [facility] Decription of patient's judgement and insights: Fair - Mood Mood: Depressed (Less than before) - Affect Affect: Depressed - Speech Speech: Appropriate - Formal Thought Process Formal Thought Process: No Impairment Psychotic Thoughts and Behaviors: None - Suicidal Ideation Suicidal Ideation: No - Homicidal Ideation Homicidal Ideation: No Goal/Treatment Plan - Goal/Treatment Plan Need for Continued Stay: Remain at risks for inpatient hospitalization, Discharge may exacerbated symptoms, Severe functional impairment Progress Toward Problem(s) and Goals/Treatment Plan: Patient education Supportive therapy Continue treatment as before. Estimated Date of D/C: 11/22/16 - Smoking Cessation Smoking Cessation Initiated: No
[2016-11-18] MEDS: Divalproex 500 mg DR Tab PO SCH ×2 (10:00→17:24)
--- NOTE | 2016-11-18 17:15 | PCM.PYCHPN ---
Psychiatric Progress Note - Psychiatric Progress Note Patient seen today, length of contact: 15 minutes Patient Chief Complaint: I'm feeling much better. Problems Identified/Issues Discussed: Patient seen. Chart reviewed. Case discussed with the staff. Issues related to illness and treatment were discussed with the patient. Reported compliant with treatment with no adverse affects. Follow-up care discussed with the patient. More social, attending groups. Patient reported that she she is feeling much better. Better sleep. At the time of evaluation, patient was awake alert oriented 3, had no delusions , no auditory or visual hallucinations, no suicidal ideations or homicidal ideations. Medical Problems: Diabetes mellitus Diagnostic Results: Reviewed DSM 5 Symptoms Update: Improving with treatment Medication Change: No Medical Record Reviewed: Yes Mental Status Examination - Cognitive Function Orientation: Person, Place, Situation, Time Memory: Intact Attention: WNL Concentration: WNL Association: WNL Fund of Knowledge: WN Decription of patient's judgement and insights: Fair - Mood Mood: Depressed (Less than before) - Affect Affect: Depressed - Speech Speech: Appropriate - Formal Thought Process Formal Thought Process: No Impairment Psychotic Thoughts and Behaviors: None - Suicidal Ideation Suicidal Ideation: No - Homicidal Ideation Homicidal Ideation: No Goal/Treatment Plan - Goal/Treatment Plan Need for Continued Stay: Remain at risks for inpatient hospitalization, Discharge may exacerbated symptoms, Severe functional impairment Progress Toward Problem(s) and Goals/Treatment Plan: Patient education Supportive therapy Continue treatment as before. Estimated Date of D/C: 11/22/16 - Smoking Cessation Smoking Cessation Initiated: No
[2016-11-19] MEDS: Hydrocortisone 1% Cream (30 GM) TOP PRN (09:39)
[2016-11-19] MEDS: Divalproex 500 mg DR Tab PO SCH ×2 (09:40→17:16)
--- NOTE | 2016-11-19 18:16 | PCM.PYCHPN ---
Psychiatric Progress Note - Psychiatric Progress Note Patient seen today, length of contact: 15 minutes Patient Chief Complaint: I'm still depressed on and off Problems Identified/Issues Discussed: Patient was seen. Chart was reviewed important content noted. Nurse input received. No events overnight. Pt stated that yesterday she was depressed and today she is feeling fine. She reported improvement in AH. He stated that he is eating well and slept well Patient denies any depressive symptoms. Denies suicidal or homicidal ideations. Patient does not report visual hallucinations. No delusions elicited. No paranoia elicited. Patient has remained in good clinical and behavioral control. He denied withdrawal symptoms Patient is finding medications beneficial and would like to continue with treatment plan. Patient appreciated that treatment team is trying to help DSM 5 Symptoms Update: MDD recurrent with psychotic features r/o Bipolar disorder Medication Change: No Medical Record Reviewed: Yes Mental Status Examination - Cognitive Function Orientation: Person, Place, Situation, Time Memory: Intact Attention: WNL Concentration: WNL Association: WNL Fund of Knowledge: WNL - Mood Mood: Depressed (Less than before) - Affect Affect: Constricted - Speech Speech: Appropriate - Formal Thought Process Formal Thought Process: No Impairment - Suicidal Ideation Suicidal Ideation: No - Homicidal Ideation Homicidal Ideation: No Goal/Treatment Plan - Goal/Treatment Plan Need for Continued Stay: Discharge may exacerbated symptoms, Severe functional impairment Progress Toward Problem(s) and Goals/Treatment Plan: Continue current treatment as per primary team. Therapy in milieu Medication benefits, side effects, alternative choices were discussed in detailed. pt verbalized understanding and in agreement with the treatment plan. Estimated Date of D/C: 11/22/16
[2016-11-20] MEDS: Divalproex 500 mg DR Tab PO SCH ×2 (09:44→17:27)
--- NOTE | 2016-11-20 18:18 | PCM.PYCHPN ---
Psychiatric Progress Note - Psychiatric Progress Note Patient seen today, length of contact: 15 minutes Patient Chief Complaint: "I accepted that I have depression" Problems Identified/Issues Discussed: Patient was seen. Chart was reviewed important content noted. Nurse input received that pt is more visible in the unit and compliant with the treatment. No events overnight. Pt stated that "she has accepted that she has depression" . . She reported improvement in AH and other depressive symptoms. He stated that he is eating well and slept well Patient denies any depressive symptoms. Denies suicidal or homicidal ideation intent or plan. Patient does not report visual hallucinations. No delusions elicited. No paranoia elicited. Patient has remained in good clinical and behavioral control. He denied withdrawal symptoms Patient is finding medications beneficial and would like to continue with treatment plan. Patient appreciated that treatment team is trying to help DSM 5 Symptoms Update: MDD Recurrent, severe without psychotic features Medication Change: No Medical Record Reviewed: Yes Mental Status Examination - Cognitive Function Orientation: Person, Place, Situation, Time Memory: Intact Attention: WNL Concentration: WNL Association: WN Fund of Knowledge: [facility] Decription of patient's judgement and insights: Limited/limited - Mood Mood: Other ("I'm feeling better") - Affect Affect: Constricted - Speech Speech: Appropriate - Formal Thought Process Formal Thought Process: No Impairment Psychotic Thoughts and Behaviors: denied - Suicidal Ideation Suicidal Ideation: No - Homicidal Ideation Homicidal Ideation: No Goal/Treatment Plan - Goal/Treatment Plan Need for Continued Stay: Discharge may exacerbated symptoms, Severe functional impairment Progress Toward Problem(s) and Goals/Treatment Plan: Continue current treatment as per primary team. Therapy in milieu Medication benefits, side effects, alternative choices were discussed in detailed. pt verbalized understanding and in agreement with the treatment plan. Estimated Date of D/C: 11/22/16
[2016-11-21] MEDS: Divalproex 500 mg DR Tab PO SCH ×2 (09:16→17:16)
--- NOTE | 2016-11-21 16:01 | PCM.PYCHPN ---
Psychiatric Progress Note - Psychiatric Progress Note Patient seen today, length of contact: 15 minutes Patient Chief Complaint: I'm feeling much better. But I wake up a lot. Problems Identified/Issues Discussed: Patient seen. Chart reviewed. Case discussed with the staff. Issues related to illness and treatment were discussed with the patient. Reported compliant with treatment with no adverse affects. Follow-up care discussed with the patient. More social, attending groups. Patient reported that she is feeling much better. Wakes up a lot at night, feels tired in the morning. Before admission to the hospital patient was scheduled for sleep study to rule out obstructive sleep apnea. At the time of evaluation, patient was awake alert oriented 3, had no delusions , no auditory or visual hallucinations, no suicidal ideations or homicidal ideations. Medical Problems: Diabetes mellitus Diagnostic Results: Reviewed DSM 5 Symptoms Update: Improving with treatment Medication Change: No Medical Record Reviewed: Yes Mental Status Examination - Cognitive Function Orientation: Person, Place, Situation, Time Memory: Intact Attention: WNL Concentration: WNL Association: WN Fund of Knowledge: [facility] Decription of patient's judgement and insights: Fair - Mood Mood: Neutral - Affect Affect: Other (Appropriate) - Speech Speech: Appropriate - Formal Thought Process Formal Thought Process: No Impairment Psychotic Thoughts and Behaviors: None reported - Suicidal Ideation Suicidal Ideation: No - Homicidal Ideation Homicidal Ideation: No Goal/Treatment Plan - Goal/Treatment Plan Need for Continued Stay: Remain at risks for inpatient hospitalization, Discharge may exacerbated symptoms, Severe functional impairment Progress Toward Problem(s) and Goals/Treatment Plan: Patient education Supportive therapy Continue treatment as before. Estimated Date of D/C: 11/22/16 - Smoking Cessation Smoking Cessation Initiated: No
[2016-11-21 17:11] VITALS: O2SAT 84
[2016-11-21] MEDS: Hydrocortisone 1% Cream (30 GM) TOP PRN (21:19)
[2016-11-22] MEDS: Divalproex 500 mg DR Tab PO SCH (09:07)
[2016-11-22 09:22] VITALS: BP 101/60; PULSE 68; RESP 20; TEMP 98.6
--- NOTE | 2016-11-22 17:51 | PCM.PYCHDC ---
Mental Status Examination - Mental Status Examination Orientation: Person, Place, Situation, Time Memory: Intact Mood: Neutral Affect: Other (Appropriate) Speech: Appropriate Attention: WNL Concentration: WNL Association: WNL Fund of Knowledge: WNL Formal Thought Process: No Impairment Description of patient's judgement and insight: Fair Psychotic Thoughts and Behaviors: None reported Suicidal Ideation: No Current Homicidal Ideation?: No Discharge Summary - Discharge Note Reason for Hospitalization: Depression Laboratory Data: Abnormal Lab Results 11/22/16 07:37 POC Glucose (mg/dL) 174 H Consultations:: List each consultation separately and include: 1. Reason for request. 2. Findings. 3. Follow-up Summary of Hospital Course include:: 1. Description of specific treatment plan utilized for patients during their course of treatmen. 2. Summarize the time- course for resolution of acute symptoms and/or regressed behaviors. 3. Describe issues identified and worked on during hospitalization. 4. Describe medication utilized. 5. Describe medical problems identified and treated. 6. Reassessment of suicide risk Summary of Hospital Course: Pt is a 41 year old female with a PMH of bipolar disorder, DM, asthma and scoliosis who presented to the ED 11/14/16 for excessive, worsening anxiety and SI. She visited the ED earlier on the same date without admission but returned within 24 hours because her symptoms had not improved. She is as of May 2016 and has 4 children aged 22, 19, 18 and 5. She lives with her sister, 2 of her sister's children, and her 2 oldest children. She does not work; she collects an income through [employer] and food stamps. She was in the process of studying to obtain her GED but states that she recently stopped attending class because "it was too much for me." Pt has a history of psychiatric admission at [facility] [place] on 10/01/16 during which she chose to leave suddenly. She reports a history of "a couple" of suicide attempts but could not recall details. She reports to regularly take Depakote as prescribed. She denies family psychiatric history but reports that her father was an alcoholic. Pt denies current use of drugs and alcohol. She reports history of habitual marijuana use (last use 2 months ago), sporadic use of ecstasy and cocaine ( last use "a few months ago"), and sporadic alcohol use (last use 3-4 months ago) . She currently denies symptoms of withdrawal. Pt reports to have recently experienced delusions of grandeur and of buddhist nature, audio hallucinations of command type, excessive anger, insomnia and paranoia. She is not currently experiencing hallucinations or delusions at this moment. She denies SI, HI and symptoms of bailee. Support and psychoeducation given, CBT and VT used briefly. After care discussed. Pt has previously been seen at [facility] and would like to be referred back upon discharge. During her stay in the hospital, patient was started on Depakote and other supporting medications. Later dose of Depakote was increased. Patient tended group therapy and other activities on the unit. With the above treatment patient started feeling better. Today patient was stable and ready for discharge. At the time of evaluation and discharge, patient was awake alert oriented 3, had no delusions, no auditory or visual hallucinations, no suicidal ideations or homicidal ideations. Patient was discharged in a stable condition. - Diagnosis (1) Major depression Status: Acute - Final Diagnosis (DSM 5) Condition upon Discharge: GOOD Disposition: HOME/ ROUTINE Follow-up Treatment Plan: Patient will go to [facility] for follow-up care. Prescriptions/Medication Reconciliation: Divalproex [Depakote DR] 500 mg PO BID #60 tcp Escitalopram [Lexapro] 5 mg PO QPM #30 tab metFORMIN [glucOPHAGE] 500 mg PO BID #60 tab QUEtiapine [SEROquel] 50 mg PO HS #30 tab - Smoking Cessation Smoking Cessation Medication prescribed: No - Antipsychotic Medications Pt discharged on 2 or more routine antipsychotic medications: No
== END 2016-11-22 12:40 | disposition home or self-care (01) | DRG 430 ==
LOC: C.ER 04:18 → C.9E 07:04 → C.5E 10:42
PROC: GZ56ZZZ Individual Psychotherapy, Supportive (ICD-10-PCS; principal; 2016-11-14)
DX: F33.3 Major depressive disorder, recurrent, severe with psychotic symptoms (principal); M41.9 Scoliosis, unspecified; I10 Essential (primary) hypertension; F41.9 Anxiety disorder, unspecified; G47.00 Insomnia, unspecified; F31.9 Bipolar disorder, unspecified; E78.00 Pure hypercholesterolemia, unspecified; E11.9 Type 2 diabetes mellitus without complications; J45.909 Unspecified asthma, uncomplicated; Z87.891 Personal history of nicotine dependence; Z86.73 Personal history of transient ischemic attack (TIA), and cerebral infarction without residual deficits

== ENCOUNTER 2016-12-19 15:22 | Emergency (ER) | payer MEDICAID, OTHER ==
[2016-12-19 15:22] VITALS: BMI 33.3
[2016-12-19] MEDS ORDERED: Aspirin 325 mg EC Tablets PO STA (17:05)
[2016-12-19] MEDS ORDERED: Sodium Chloride 0.9% 1,000 ML IV ONE (17:30)
[2016-12-19 17:31] VITALS: RESP 18
[2016-12-19 17:39] LABS: BASO # 0.1 K/uL (0.0-0.2); BASO % 0.5 % (0.0-2.0); EOS # 0.2 K/uL (0.0-0.7); EOS % 1.4 % (0.0-4.0); HEMATOCRIT 38.3 % (34.0-47.0); LYMPH % 34.2 % (20.0-40.0); MEAN CELL VOLUME 80.4 fL (81.0-99.0); MEAN CORPUSCULAR HEMOGLOBIN 26.3 pg (27.0-31.0); MEAN CORPUSCULAR HGB CONC 32.7 g/dL (33.0-37.0); MONO # 0.6 K/uL (0.0-0.8); MONO % 5.6 % (0.0-10.0); RED CELL DISTRIBUTION WIDTH 14.7 % (11.5-14.5); WHITE BLOOD COUNT 11.7 K/uL (4.8-10.8)
[2016-12-19] MEDS ORDERED: Aspirin 325 mg EC Tablets PO ONE (17:42)
[2016-12-19] MEDS ORDERED: Sodium Chloride 0.9% 1,000 ML ONE (17:43)
[2016-12-19 17:47] LABS: CHLORIDE 98 mmol/L (98-107); POTASSIUM 3.8 mmol/L (3.6-5.2); SODIUM 135 mmol/L (132-148)
[2016-12-19 17:49] LABS: AST/SGOT 16 U/L (14-36); BILIRUBIN,TOTAL 0.7 mg/dL (0.2-1.3); CARBON DIOXIDE 25 mmol/L (22-30); GFR AFRICAN-AMERICAN > 60
[2016-12-19 17:50] LABS: ALKALINE PHOSPHATASE 73 U/L (38-126); ALT/SGPT 33 U/L (9-52); BLOOD UREA NITROGEN 11 mg/dL (7-17); CALCIUM 8.7 mg/dl (8.6-10.4); GLUCOSE,RANDOM 89 mg/dL (65-105); TOTAL PROTEIN 7.9 g/dL (6.3-8.3)
[2016-12-19 18:21] LABS: RBC URINE 1 /hpf (0-3); URINE BACTERIA RARE (<OCC); URINE BILIRUBIN NEGATIVE (NEGATIVE); URINE BLOOD NEGATIVE (NEGATIVE); URINE COLOR Yellow (YELLOW); URINE GLUCOSE (UA) NORMAL (Normal); URINE KETONE TRACE mg/dL (NEGATIVE); URINE LEUKOCYTE ESTERASE NEG Leu/uL (Negative); URINE PROTEIN NEGATIVE (NEGATIVE); URINE UROBILINOGEN NORMAL mg/dL (0.2-1.0); WBC URINE 3 /hpf (0-5)
[2016-12-19 18:42] VITALS: O2SAT 100
--- NOTE | 2016-12-19 18:45 | C.PDOC ---
History Of Present Illness <Bernie Guaman - Last Filed: 12/19/16 19:06> <Siobhan Mata - Last Filed: 12/19/16 21:45> 41 year old female presents to the ED for evaluation of intermittent episodes of nonbloody vomiting and diarrhea which began 4 days ago. Patient notes she developed mid-sternal chest pain yesterday and states she has been "feeling dehydrated" due to her inability to tolerate fluids. Patient also reports history of intermittent abdominal pain that has been ongoing for "months." Patient is currently following up with a GI doctor for possibility of gastritis and/or hemorrhoids. Patient denies fever, chills, shortness of breath. (Bernie Guaman) History Per: Patient History/Exam Limitations: no limitations Onset/Duration Of Symptoms: Hrs, Days (4), Intermittent Episodes Current Symptoms Are (Timing): Still Present Quality: "Pain" Additional History Per: Patient <Bernie Guaman - Last Filed: 12/19/16 19:06> <Siobhan Mata - Last Filed: 12/19/16 21:45> Time Seen by Provider: 12/19/16 17:05 Chief Complaint (Nursing): Chest Pain Past Medical History Reviewed: Historical Data, Nursing Documentation, Vital Signs - Medical History PMH: Anemia, Anxiety, Asthma, Back Problems (scoliosis), Bronchitis, CVA (left- sided), Depression, Diabetes, Gastritis, HTN, Hypercholesterolemia, Migraine, Peripheral Edema (LEFT LEG), Seizures (6 mo ago), Chronic Pain (back) Denies: Hepatitis, HIV, Chronic Kidney Disease, Sexually Transmitted Disease Surgical History: Endoscopy Family History: States: Unknown Family Hx, Diabetes, Hypertension - Social History Hx Tobacco Use: Yes Hx Alcohol Use: No Hx Substance Use: No - Immunization History Hx Tetanus Toxoid Vaccination: Yes (2 years ago) Hx Influenza Vaccination: Yes Hx Pneumococcal Vaccination: Yes <Bernie Guaman - Last Filed: 12/19/16 19:06> Vital Signs: Last Vital Signs Temp 97.8 F 12/19/16 15:31 Pulse 74 12/19/16 18:41 Resp 18 12/19/16 18:41 BP 122/75 12/19/16 18:41 Pulse Ox 100 12/19/16 19:06 - [facility] GROUP PSYCHOTHERAPY (10/01/16) INDIVIDUAL PSYCHOTHERAPY, COGNITIVE-BEHAVIORAL (04/05/16) INDIVIDUAL PSYCHOTHERAPY, SUPPORTIVE (11/14/16) INJECT/INFUSE NEC (05/09/13) MEDICATION MANAGEMENT (10/01/16) Review Of Systems Constitutional: Negative for: Fever, Chills Cardiovascular: Positive for: Chest Pain Gastrointestinal: Positive for: Vomiting, Abdominal Pain, Diarrhea <Bernie Guaman - Last Filed: 12/19/16 19:06> Physical Exam - Physical Exam Appears: Non-toxic, No Acute Distress Skin: Normal Color, Warm, Dry Head: Atraumatic, Normacephalic Eye(s): bilateral: Normal Inspection Oral Mucosa: Moist Neck: Supple Chest: Symmetrical, No Deformity, No Tenderness Cardiovascular: Rhythm Regular, No Murmur Respiratory: Normal Breath Sounds, No Rales, No Rhonchi, No Wheezing Gastrointestinal/Abdominal: Bowel Sounds (active ), Soft, Tenderness (mild, diffuse ), No Guarding, No Rebound Back: Normal Inspection, No Vertebral Tenderness, No Paraspinal Tenderness Extremity: Normal ROM, Capillary Refill (less than 2 seconds ) Gait: Steady <Bernie Guaman - Last Filed: 12/19/16 19:06> ED Course And Treatment - Laboratory Results Result Diagrams: 12/19/16 17:35 12/19/16 17:35 O2 Sat by Pulse Oximetry: 100 (on RA) Pulse Ox Interpretation: Normal <Bernie Guaman - Last Filed: 12/19/16 19:06> - Laboratory Results Result Diagrams: 12/19/16 17:35 12/19/16 17:35 <Siobhan Mata - Last Filed: 12/19/16 21:45> Medical Decision Making <Bernie Guaman - Last Filed: 12/19/16 19:06> <Siobhan Mata - Last Filed: 12/19/16 21:45> Medical Decision Making: Progress: Labs, CT A/P, CXR ordered and reviewed. Ecotrin PO, Pepcid IVP, Toradol IVP and Zofran IVP administered. (Bernie Guaman) Disposition - Disposition Disposition Time: 19:06 <Bernie Guaman - Last Filed: 12/19/16 19:06> <Siobhan Mata - Last Filed: 12/19/16 21:45> - Disposition Referrals: Artem Villanueva MD [Staff Provider] - Disposition: HOME/ ROUTINE Condition: STABLE Instructions: Gastroenteritis (ED) Forms: General Discharge Instructions, [facility] ([place]), Work Excuse - Clinical Impression Clinical Impression: Chest pain, Abdominal pain, Vomiting, Diarrhea - PA / GEAR MACHINE OPERATOR GENERAL / Resident Statement MD/DO has reviewed & agrees with the documentation as recorded. - Scribe Statement The provider has reviewed the documentation as recorded by the Scribe (Kinjal Arriaga) <Bernie Guaman - Last Filed: 12/19/16 19:06> <Siobhan Mata - Last Filed: 12/19/16 21:45> - Scribe Statement All medical record entries made by the Scribe were at my direction and personally dictated by me. I have reviewed the chart and agree that the record accurately reflects my personal performance of the history, physical exam, medical decision making, and the department course for this patient. I have also personally directed, reviewed, and agree with the discharge instructions and disposition. (Bernie Guaman) Physician Patient Turnover Patient Signed Over To: Siobhan Mata Handoff Comments: pending CT scan and re-evaluation <Bernie Guaman - Last Filed: 12/19/16 19:06> Addendum <Bernie Guaman - Last Filed: 12/19/16 19:06> <Siobhan Mata - Last Filed: 12/19/16 21:45> Addendum: 12/19/16 21:43 Patient endorsed to me by LAINEY Guaman at the end of her shift. Patient is a 41 yr old female came in complaining of chest pain, body aches, nausea, vomiting and abdominal pain. On reevaluation, patient reports improvement of symptoms at the end of her shift. I will give patient all her lab and urine results. Patient will follow up with DR. Villanueva for further evaluation. (Siobhan Mata)
--- NOTE | 2016-12-19 21:14 | CT ---
EXAM: CT Abdomen and Pelvis With Intravenous Contrast EXAM DATE/TIME: 12/19/2016 5:49 PM CLINICAL HISTORY: 41 years old, female; Pain; Abdominal pain; Generalized; Additional info: Vomiting, diarrhea, lower abd pain colitis TECHNIQUE: Axial computed tomography images of the abdomen and pelvis with intravenous contrast. All CT scans at this facility use one or more dose reduction techniques, viz.: automated exposure control; ma/kV adjustment per patient size (including targeted exams where dose is matched to indication; i.e. head); or iterative reconstruction technique. Coronal and sagittal reformatted images were created and reviewed. CONTRAST: 100 mL of OMNIPAQUE 350 administered intravenously. COMPARISON: Prior images are not available for review. FINDINGS: Lower thorax: Heart size is normal. There is atelectasis at the lung bases ABDOMEN: Liver: There is fatty infiltration of the liver.The liver is enlarged. Gallbladder and bile ducts: unremarkable Pancreas: unremarkable Spleen: Spleen is unremarkable. There is an accessory spleen in the left upper quadrant. Adrenals: unremarkable Kidneys and ureters: unremarkable Stomach and bowel: Stomach is almost empty. Rotation is normal. There is no obstruction. Ileocecal region is unremarkable. Appendix and terminal ileum are unremarkable. Colon is incompletely distended which limits evaluation. Appendix: See stomach and bowel PELVIS: Bladder: unremarkable Reproductive: Uterus and adnexal structures are unremarkable. ABDOMEN and PELVIS: Intraperitoneal space: There is no free air or free fluid. Bones/joints: There are degenerative changes in the osseus structures. Soft tissues: There is a small fat containing umbilical hernia. Vasculature: There are calcified phleboliths. Vascular structures are unremarkable. Lymph nodes: There is no pathologic adenopathy. IMPRESSION: Enlarged fatty liver, no acute solid visceral abnormality; no acute bowel abnormality
[2016-12-19 22:06] VITALS: BP 114/68; PULSE 72; TEMP 98.1
--- NOTE | 2016-12-20 08:09 | RAD ---
PROCEDURE: CHEST RADIOGRAPH, 1 VIEW HISTORY: chest pain COMPARISON: 03/18/2016 FINDINGS: LUNGS: Mild venous congestion. Question mild patchy opacification at the left lung base. PLEURA: No pneumothorax or pleural fluid seen. CARDIOVASCULAR: Normal. OSSEOUS STRUCTURES: No significant abnormalities. VISUALIZED UPPER ABDOMEN: Normal. OTHER FINDINGS: None. IMPRESSION: Mild venous congestion. Question mild patchy opacification at the left lung base.
--- NOTE | 2016-12-21 21:45 | CARD ---
APPROVED REPORT EKG Measurement Heart [id number] <Conclusion> Normal sinus rhythm Normal ECG
== END 2016-12-19 22:06 | disposition home or self-care (01) ==
LOC: C.ER 15:22
DX: R11.10 Vomiting, unspecified (principal); R19.7 Diarrhea, unspecified; R07.9 Chest pain, unspecified; R10.9 Unspecified abdominal pain
CPT/HCPCS: 71010; 74177; 80053; 81001; 83690; 83880; 84484; 84703; 85025; 93005; 96374; 96375; 99285; J1885; J2405; J7040

== ENCOUNTER 2017-04-11 13:22 | Emergency (ER) | payer MEDICAID, SELFPAY ==
[2017-04-11 13:22] VITALS: BMI 33.3
[2017-04-11 13:38] VITALS: TEMP 99
[2017-04-11 14:51] LABS: BASO # 0.1 K/uL (0.0-0.2); EOS # 0.1 K/uL (0.0-0.7); HEMOGLOBIN 12.8 g/dL (11.0-16.0); MONO # 0.6 K/uL (0.0-0.8); WHITE BLOOD COUNT 10.1 K/uL (4.8-10.8)
[2017-04-11 14:55] LABS: BASO % 0.9 % (0.0-2.0); EOS % 0.7 % (0.0-4.0); LYMPH # 3.2 K/uL (1.0-4.3); LYMPH % 31.8 % (20.0-40.0); MEAN CELL VOLUME 79.7 fL (81.0-99.0); MEAN CORPUSCULAR HGB CONC 33.9 g/dL (33.0-37.0); MEAN PLATELET VOLUME 9.6 fL (7.2-11.7); MONO % 6.4 % (0.0-10.0); NEUT # 6.1 K/uL (1.8-7.0); NEUT % 60.2 % (50.0-75.0); RBC 4.74 Mil/uL (3.80-5.20); RED CELL DISTRIBUTION WIDTH 15.7 % (11.5-14.5)
--- NOTE | 2017-04-11 14:56 | RAD ---
HISTORY: chest pain COMPARISON: Chest x-ray performed 02/21/17 TECHNIQUE: Chest, one view. FINDINGS: Examination limited by habitus and hypoinflation. LUNGS: No focal consolidation. Please note that chest x-ray has limited sensitivity for the detection of pulmonary masses. PLEURA: No significant pleural effusion identified. No definite pneumothorax . CARDIOVASCULAR: The cardiomediastinal silhouette appears within normal limits of size. OSSEOUS STRUCTURES: No acute osseous abnormality identified. VISUALIZED UPPER ABDOMEN: Unremarkable. OTHER FINDINGS: None. IMPRESSION: No focal consolidation identified.
[2017-04-11 15:06] LABS: ALB/GLOB RATIO 1.1 (1.0-2.1); ALBUMIN 3.8 g/dL (3.5-5.0); ALT/SGPT 33 U/L (9-52); AST/SGOT 33 U/L (14-36); BLOOD UREA NITROGEN 13 mg/dL (7-17); CALCIUM 9.3 mg/dl (8.6-10.4); GFR AFRICAN-AMERICAN > 60; GFR NON-AFRICAN AMERICAN > 60
[2017-04-11 16:14] VITALS: BP 109/73; PULSE 79; RESP 22; O2SAT 99
--- NOTE | 2017-04-11 17:00 | C.PDOC ---
History Of Present Illness 41 yr old female presents to the ER with complaints of intermittent chest pain for the past 1 month, however states it has increased over the past 2 days. Describes the pain as sharp, substernal and left sided. 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 Patient was sent to the ER from [facility]. Denies fever, chills, cough, SOB, weakness or numbness. Time Seen by Provider: 04/11/17 13:39 Chief Complaint (Nursing): Chest Pain History Per: Patient History/Exam Limitations: no limitations Onset/Duration Of Symptoms: Intermittent Episodes (1 month), Worse Since (2 days ) Past Medical History Reviewed: Historical Data, Nursing Documentation, Vital Signs Vital Signs: Last Vital Signs Temp 99.0 F 04/11/17 13:29 Pulse 79 04/11/17 16:13 Resp 22 04/11/17 16:13 BP 109/73 04/11/17 16:13 Pulse Ox 99 04/11/17 17:29 - Medical History PMH: Anemia, Anxiety, Asthma, Back Problems (scoliosis), Bronchitis, CVA (left- sided), Depression, Diabetes, Gastritis, HTN, Hypercholesterolemia, Migraine, Peripheral Edema (LEFT LEG), Seizures (6 mo ago), Chronic Pain (back) Surgical History: Endoscopy - [facility] Procedures GROUP PSYCHOTHERAPY (10/01/16) INDIVIDUAL PSYCHOTHERAPY, COGNITIVE-BEHAVIORAL (04/05/16) INDIVIDUAL PSYCHOTHERAPY, SUPPORTIVE (11/14/16) INJECT/INFUSE NEC (05/09/13) MEDICATION MANAGEMENT (10/01/16) Family History: States: Diabetes, Hypertension - Social History Hx Tobacco Use: Yes Hx Alcohol Use: No Hx Substance Use: Yes - Immunization History Hx Tetanus Toxoid Vaccination: Yes (2 years ago) Hx Influenza Vaccination: Yes Hx Pneumococcal Vaccination: Yes Review Of Systems Except As Marked, All Systems Reviewed And Found Negative. Constitutional: Negative for: Fever, Chills Cardiovascular: Positive for: Chest Pain (left sided, substernal) Respiratory: Negative for: Cough, Shortness of Breath Neurological: Negative for: Weakness, Numbness Physical Exam - Physical Exam Appears: Non-toxic, No Acute Distress Skin: Warm, Dry, No Rash Eye(s): bilateral: Normal Inspection, PERRL, EOMI Oral Mucosa: Moist Chest: Symmetrical, No Tenderness Cardiovascular: Rhythm Regular, No Murmur Respiratory: Normal Breath Sounds, No Rales, No Rhonchi, No Wheezing Gastrointestinal/Abdominal: Normal Exam, Soft, No Tenderness, No Guarding, No Rebound Neurological/Psych: Oriented x3, Normal Speech ED Course And Treatment - Laboratory Results Result Diagrams: 04/11/17 14:45 04/11/17 14:45 ECG: Interpreted By Me, Viewed By Me ECG Rhythm: Sinus Rhythm Interpretation Of ECG: Normal axis. Rate From EC (BPM) O2 Sat by Pulse Oximetry: 99 (RA) Pulse Ox Interpretation: Normal - Other Rad CXR X-Ray: Viewed By Me, Read By Radiologist Interpretation: HISTORY: chest pain. COMPARISON: Chest x-ray performed . TECHNIQUE: Chest, one view. FINDINGS: Examination limited by habitus and hypoinflation. LUNGS: No focal consolidation. Please note that chest x- ray has limited sensitivity for the detection of pulmonary masses. PLEURA: No significant pleural effusion identified. No definite pneumothorax . CARDIOVASCULAR: The cardiomediastinal silhouette appears within normal limits of size. OSSEOUS STRUCTURES: No acute osseous abnormality identified. VISUALIZED UPPER ABDOMEN: Unremarkable. OTHER FINDINGS: None. IMPRESSION: No focal consolidation identified. Medical Decision Making Medical Decision Making: PLAN: * CXR * EKG * Labs NOTE: * Spoke to Dr. Danielle regarding patient who states patient had a normal cath in January 2016 * Patient is clear for discharge and will follow up with Dr. Danielle in new few days for further evaluation Disposition - Disposition Referrals: Rand Danielle MD [Staff Provider] - Disposition: HOME/ ROUTINE Disposition Time: 15:15 Condition: GOOD Additional Instructions: Thank you for letting us take care of you today. The emergency medical care you received today was directed at your acute symptoms. If you were prescribed any medication, please fill it and take as directed. It may take several days for your symptoms to resolve. Return to the Emergency Department if your symptoms worsen, do not improve, or if you have any other problems. Please contact your doctor or call one of the physicians/clinics you have been referred to that are listed on the Patient Visit Information form that is included in your discharge packet. Bring any paperwork you were given at discharge with you along with any medications you are taking to your follow up visit. Our treatment cannot replace ongoing medical care by a primary care provider (PCP) outside of the emergency department. Thank you for allowing the [facility] team to be part of your care today. Follow up with Dr. Danielle in 2-3 days for re-evaluation and further management. Instructions: Chest Pain That Is Not Caused by the Heart (DC) Forms: [employer] (Slovenian) - Clinical Impression Clinical Impression: Non-cardiac chest pain - Scribe Statement The provider has reviewed the documentation as recorded by the Uriibe Ingrid Swanson Provider Attestation: All medical record entries made by the Uriibpiero were at my direction and personally dictated by me. I have reviewed the chart and agree that the record accurately reflects my personal performance of the history, physical exam, medical decision making, and the department course for this patient. I have also personally directed, reviewed, and agree with the discharge instructions and disposition.
--- NOTE | 2017-04-12 11:47 | CARD ---
APPROVED REPORT EKG Measurement Heart [id number] <Conclusion> Normal sinus rhythm Normal ECG
== END 2017-04-11 16:50 | disposition home or self-care (01) ==
LOC: C.ER 13:22
DX: R07.89 Other chest pain (principal); I10 Essential (primary) hypertension; E78.00 Pure hypercholesterolemia, unspecified; D64.9 Anemia, unspecified; Z86.73 Personal history of transient ischemic attack (TIA), and cerebral infarction without residual deficits; F17.210 Nicotine dependence, cigarettes, uncomplicated

== ENCOUNTER 2017-09-28 09:39 | Inpatient (IN) | payer MEDICAID ==
[2017-09-28 09:54] VITALS: BMI 35.0
[2017-09-28 11:21] LABS: BASO # 0.1 K/uL (0.0-0.2); BASO % 0.5 % (0.0-2.0); EOS # 0.1 K/uL (0.0-0.7); EOS % 0.9 % (0.0-4.0); HEMOGLOBIN 12.9 g/dL (11.0-16.0); LYMPH # 2.6 K/uL (1.0-4.3); LYMPH % 21.8 % (20.0-40.0); MEAN CELL VOLUME 79.5 fL (81.0-99.0); MEAN CORPUSCULAR HEMOGLOBIN 26.4 pg (27.0-31.0); MEAN CORPUSCULAR HGB CONC 33.2 g/dL (33.0-37.0); MEAN PLATELET VOLUME 9.8 fL (7.2-11.7); MONO # 0.7 K/uL (0.0-0.8); MONO % 5.5 % (0.0-10.0); NEUT # 8.5 K/uL (1.8-7.0); NEUT % 71.3 % (50.0-75.0); RBC 4.89 Mil/uL (3.80-5.20); RED CELL DISTRIBUTION WIDTH 16.6 % (11.5-14.5)
[2017-09-28 11:31] LABS: SQUAMOUS EPITHIAL 15 /hpf (0-5); URINE BACTERIA RARE (<OCC); URINE BILIRUBIN NEGATIVE (NEGATIVE); URINE BLOOD NEGATIVE (NEGATIVE); URINE CLARITY Hazy (Clear); URINE COLOR Amber (YELLOW); URINE GLUCOSE (UA) NORMAL (Normal); URINE LEUKOCYTE ESTERASE NEG Leu/uL (Negative); URINE PROTEIN 1+ mg/dL (NEGATIVE)
[2017-09-28 11:35] LABS: ALB/GLOB RATIO 1.2 (1.0-2.1); ALBUMIN 4.2 g/dL (3.5-5.0); ALT/SGPT 17 U/L (9-52); AST/SGOT 19 U/L (14-36); BLOOD UREA NITROGEN 11 mg/dL (7-17); GFR AFRICAN-AMERICAN > 60; GFR NON-AFRICAN AMERICAN > 60
[2017-09-28 11:52] LABS: BARBITURATES, UR NEGATIVE (NEGATIVE); BENZODIAZEPINES, UR NEGATIVE (NEGATIVE); OPIATES, UR NEGATIVE (NEGATIVE); PHENCYCLIDINE, UR NEGATIVE (NEGATIVE)
--- NOTE | 2017-09-28 13:01 | C.PDOC ---
History Of Present Illness 42 y/o female presents to the ER complaining of feeling depressed and occaional suicidal for a long time. She admits to occasional homicidal ideations towards her boyfriend. The patient offers no other medical complaints at this time. Time Seen by Provider: 09/28/17 09:56 Chief Complaint (Nursing): Psychiatric Evaluation History Per: Patient History/Exam Limitations: no limitations Onset/Duration Of Symptoms: Days Current Symptoms Are (Timing): Still Present Associated Symptoms: Depression, Suicidal Thoughts, Other (occasional HI) Recent travel outside of the [place]: No Past Medical History Reviewed: Historical Data, Nursing Documentation, Vital Signs Vital Signs: Last Vital Signs Temp 98.6 F 09/28/17 12:23 Pulse 84 09/28/17 16:01 Resp 18 09/28/17 12:23 BP 118/78 09/28/17 16:01 Pulse Ox 98 09/28/17 16:01 - Medical History PMH: Anemia, Anxiety, Asthma, Back Problems (scoliosis), Bronchitis, CVA (left- sided), Depression, Diabetes (Type 2), Gastritis, HTN, Hypercholesterolemia, Migraine, Peripheral Edema (LEFT LEG), Seizures (6 mo ago), Chronic Pain (back) Denies: Hepatitis, HIV, Chronic Kidney Disease, Sexually Transmitted Disease Surgical History: Endoscopy - [facility] Procedures GROUP PSYCHOTHERAPY (10/01/16) INDIVIDUAL PSYCHOTHERAPY, COGNITIVE-BEHAVIORAL (04/05/16) INDIVIDUAL PSYCHOTHERAPY, SUPPORTIVE (11/14/16) INJECT/INFUSE NEC (05/09/13) MEDICATION MANAGEMENT (10/01/16) Family History: States: Unknown Family Hx, Diabetes, Hypertension - Social History Hx Tobacco Use: Yes Hx Alcohol Use: No Hx Substance Use: Yes - Immunization History Hx Tetanus Toxoid Vaccination: Yes (2 years ago) Hx Influenza Vaccination: Yes Hx Pneumococcal Vaccination: Yes Review Of Systems Except As Marked, All Systems Reviewed And Found Negative. Constitutional: Negative for: Fever Respiratory: Negative for: Shortness of Breath Neurological: Negative for: Confusion, Headache Psych: Positive for: Depression, Suicidal ideation, Other (occasional SI) Physical Exam - Physical Exam Appears: Well, Non-toxic, No Acute Distress Skin: Normal Color, Warm, No Rash Head: Atraumatic, Normacephalic Eye(s): bilateral: PERRL, EOMI Ear(s): Bilateral: Normal Oral Mucosa: Moist Neck: Normal ROM, Supple Chest: Symmetrical Cardiovascular: Rhythm Regular, No Murmur Respiratory: Normal Breath Sounds, No Rales, No Rhonchi, No Wheezing Gastrointestinal/Abdominal: Bowel Sounds, Soft, No Tenderness Extremity: Normal ROM Extremity: Bilateral: Atraumatic Pulses: Left Radial: Normal, Right Radial: Normal Neurological/Psych: Oriented x3 Gait: Steady ED Course And Treatment - Laboratory Results Result Diagrams: 09/28/17 11:16 09/28/17 11:16 O2 Sat by Pulse Oximetry: 99 (RA) Pulse Ox Interpretation: Normal Medical Decision Making Medical Decision Making: Impression: 42 y/o female with SI/HI Plan: --Alcohol serum --CMP --Drug Screening --CBC --UA Dr. Long acccepted for admission Disposition - Disposition Disposition: HOSPITALIZED Disposition Time: 11:50 Condition: GOOD - Clinical Impression Clinical Impression: MDD (major depressive disorder) - PA / POLYGRAPH TECHNICIAN / Resident Statement MD/DO has reviewed & agrees with the documentation as recorded. - Scribe Statement The provider has reviewed the documentation as recorded by the Scribe (Obdulia Callahan) Provider Attestation: All medical record entries made by the Scribe were at my direction and personally dictated by me. I have reviewed the chart and agree that the record accurately reflects my personal performance of the history, physical exam, medical decision making, and the department course for this patient. I have also personally directed, reviewed, and agree with the discharge instructions and disposition.
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
[2017-09-28] MEDS ORDERED: Albuterol HFA 90 mcg/actuation (8 g) INH PRN (16:03)
[2017-09-28] MEDS: Divalproex 250 mg DR Tab PO SCH (18:22)
--- NOTE | 2017-09-28 18:39 | PCM.BM ---
<Jake Antonio - Last Filed: 09/28/17 18:36> Treatment Plan Problems - Problems identified on initial assessmt Depression Date Initiated: 09/28/17 Time Initiated: 12:45 Assessment reference: NA Status: Active Treatment assets and liabiliti Patient Assests: adapts well, cooperative, ADL independent, physically healthy, negotiates basic needs, cognitively intact Patient Liabilities: poor support system, substance abuse (THC), medical problems (Diabetes) - Milieu Protocol Maintain good personal hygiene: daily Encourage regular showers, daily Remind patient to perform daily oral care, every shift Assist patient to perform ADL's Conduct patient checks and document Observation sheet: Q15 minutes Maintain personal safety: every shift Educate patient to report safety concerns to staff, every shift Monitor environment for contraband/sharps Medication safety: Monitor for expected outcome, potential side effects: every shift, Assess barriers to learning: every shift, Assess readiness for medication education: every shift <Barbi Long - Last Filed: 09/29/17 13:19> - Diagnosis (1) Bipolar disorder Status: Acute Interventions: 09/29/17 13:20 * Assess/adjust medications daily and /or as needed * See patient on an individual basis 7x/week to assess level of manic behaviors and stability * Discuss risks, benefits, side effects and alternatives of medications * <Bella Cotter - Last Filed: 09/29/17 15:32> Family Contact Family involvement: Patient does not wish Family/SO involvement Family contact: Patient declines to allow family contact at present - Goals for Treatment Patient goals for treatment: "I want to go to an outpatient." Discharge/Continuing Care - Education Needs Education Needs: Patient Medication, Patient Diagnosis/Disease Process, Patient Coping Skills, Patient Anger Management skills, Patient Placement options, Patient Community resources - Discharge Discharge Criteria: Free of Suicidal thoughts, Normal sleep pattern, Ability to care for self, No longer exhibiting s/s of withdrawal, Reduction of target symptoms Discharge to:: Home, Other - Treatment Team Participation Discussed with Family/SO: No Was Patient/Family/SO present at Treatment Team Meeting: Yes
[2017-09-29] MEDS: Divalproex 250 mg DR Tab PO SCH (10:11)
--- NOTE | 2017-09-29 13:28 | PCM.PYCHPN ---
Psychiatric Progress Note - Psychiatric Progress Note Patient seen today, length of contact: 15 min Patient Chief Complaint: "I am angry" Problems Identified/Issues Discussed: The pt is seen, chart reviewed, case discussed with staff. The pt is compliant with medications and reports no side-effects. Symptoms are improving but needs more time to stabilize. She appears well groomed, still has a blunted affect and teared up a little, but says that she's trying to have a more positive outlook on her condition. Pt stated that she was not interested in taking her medications but afterwards said that she will be open. Support given, psycho-education provided. After care discussed. Medication Change: Yes Medical Record Reviewed: Yes Mental Status Examination - Cognitive Function Orientation: Person, Place, Situation, Time Memory: Intact Attention: WNL Concentration: Poor Association: Loose Fund of Knowledge: Poor - Mood Mood: Depressed, Anxious - Affect Affect: Broad, Constricted - Speech Speech: Appropriate - Formal Thought Process Formal Thought Process: Loosening of associations, Flight of ideas, Circumstantial - Suicidal Ideation Suicidal Ideation: No - Homicidal Ideation Homicidal Ideation: No Goal/Treatment Plan - Goal/Treatment Plan Need for Continued Stay: Severe depression anxiety, Severe functional impairment Progress Toward Problem(s) and Goals/Treatment Plan: Bipolar disorder mixed severe with psychotic features Cannabis use disorder moderate. CBT Psycho education Supportive therapy Depakote 250 mg PO BID Trazodone 50 mg PO QHS Hydroxyzine 25 mg PO Q6hr prn Metformin 500 mg PO BID Albuterol prn Crestor 10 mg PO QHS
[2017-09-29] MEDS: Divalproex 500 mg DR Tab PO SCH (17:25)
[2017-09-29] MEDS: Aluminum Hydroxide/Magnesium Hydroxide Susp (30 mL) PO PRN (21:34)
[2017-09-30] MEDS: Divalproex 250 mg DR Tab PO SCH (09:20)
--- NOTE | 2017-09-30 15:40 | PCM.PYCHPN ---
Psychiatric Progress Note - Psychiatric Progress Note Patient seen today, length of contact: 15 min Patient Chief Complaint: I'm feeling little better but still angry. Problems Identified/Issues Discussed: Patient seen, chart reviewed, case discussed with the staff. Issues related to illness and treatment were discussed with the patient and staff. Reported compliant with treatment with no adverse affects. Tolerating treatment very well. Calm and cooperative. Mood reported as angry. Affect inappropriate appeared calm and smiling. Aftercare discussed with the patient. Patient was awake, alert and oriented 3. Denied any delusions, auditory or visual hallucinations, suicidal ideations or homicidal ideations at the time of evaluation. Medical Problems: Diabetes mellitus Diagnostic Results: Reviewed DSM 5 Symptoms Update: Some improvement with treatment Medication Change: No Medical Record Reviewed: Yes Mental Status Examination - Cognitive Function Orientation: Person, Place, Situation, Time Memory: Intact Attention: WNL Concentration: WNL Association: WNL Fund of Knowledge: [facility] Decription of patient's judgement and insights: Fair - Mood Mood: Depressed - Affect Affect: Depressed - Speech Speech: Appropriate - Formal Thought Process Formal Thought Process: No Impairment Psychotic Thoughts and Behaviors: None - Suicidal Ideation Suicidal Ideation: No - Homicidal Ideation Homicidal Ideation: No Goal/Treatment Plan - Goal/Treatment Plan Need for Continued Stay: Remain at risks for inpatient hospitalization, Discharge may exacerbated symptoms, Severe functional impairment Progress Toward Problem(s) and Goals/Treatment Plan: Patient education. Supportive therapy. CBT for relapse prevention. [place] for abstinence Continue treatment as before. Estimated Date of D/C: 10/06/17 - Smoking Cessation Smoking Cessation Initiated: No
[2017-09-30] MEDS: Divalproex 500 mg DR Tab PO SCH (17:20)
[2017-10-01] MEDS: Divalproex 250 mg DR Tab PO SCH (10:09)
--- NOTE | 2017-10-01 15:46 | PCM.PYCHPN ---
Psychiatric Progress Note - Psychiatric Progress Note Patient seen today, length of contact: 15 min Patient Chief Complaint: I'm feeling better. My mood is still up and down. No I'm feeling pain in my body. Problems Identified/Issues Discussed: Patient seen, chart reviewed, case discussed with the staff. Issues related to illness and treatment were discussed with the patient and staff. Reported compliant with treatment with no adverse affects. Tolerating treatment very well. Patient reported feeling better but still her mood is fluctuating but less than before. Also complaining about body aches. We will start Motrin. Patient agreed. Calm and cooperative. Mood reported as angry. Affect inappropriate appeared calm and smiling. Aftercare discussed with the patient. Patient was awake, alert and oriented 3. Patient is becoming better but needs more time for stabilization. Denied any delusions, auditory or visual hallucinations, suicidal ideations or homicidal ideations at the time of evaluation. Medical Problems: Diabetes mellitus Diagnostic Results: Reviewed DSM 5 Symptoms Update: Some improvement with treatment Medication Change: Yes (Started Motrin.) Medical Record Reviewed: Yes Mental Status Examination - Cognitive Function Orientation: Person, Place, Situation, Time Memory: Intact Attention: WNL Concentration: WNL Association: [facility] Fund of Knowledge: [facility] Decription of patient's judgement and insights: Fair - Mood Mood: Depressed (Less than before) - Affect Affect: Depressed - Speech Speech: Appropriate - Formal Thought Process Formal Thought Process: No Impairment Psychotic Thoughts and Behaviors: None - Suicidal Ideation Suicidal Ideation: No - Homicidal Ideation Homicidal Ideation: No Goal/Treatment Plan - Goal/Treatment Plan Need for Continued Stay: Remain at risks for inpatient hospitalization, Discharge may exacerbated symptoms, Severe functional impairment Progress Toward Problem(s) and Goals/Treatment Plan: Patient education. Supportive therapy. CBT for relapse prevention. [place] for abstinence Continue treatment as before. Estimated Date of D/C: 10/06/17 - Smoking Cessation Smoking Cessation Initiated: No
[2017-10-01] MEDS: Divalproex 500 mg DR Tab PO SCH (17:53)
[2017-10-02] MEDS: Divalproex 250 mg DR Tab PO SCH (09:24)
--- NOTE | 2017-10-02 11:05 | PCM.PYCHPN ---
Psychiatric Progress Note - Psychiatric Progress Note Patient seen today, length of contact: 15 min Patient Chief Complaint: "I am angry" Problems Identified/Issues Discussed: The pt is seen, chart reviewed, case discussed with staff. The pt is compliant with medications and reports no side-effects. Symptoms are improving but needs more time to stabilize. She appears well groomed and is cooperative. Pt seemed to be irritated today, saying that she was feeling angry but has been trying to control it because she wants to get better. Asked for more information on mood stabilizer medications. Support given, psycho-education provided. After care discussed. Medication Change: Yes Medical Record Reviewed: Yes Mental Status Examination - Cognitive Function Orientation: Person, Place, Situation, Time Memory: Intact Attention: WNL Concentration: Poor Association: Loose Fund of Knowledge: Poor - Mood Mood: Depressed, Anxious - Affect Affect: Broad, Constricted - Speech Speech: Appropriate - Formal Thought Process Formal Thought Process: No Impairment - Suicidal Ideation Suicidal Ideation: No - Homicidal Ideation Homicidal Ideation: No Goal/Treatment Plan - Goal/Treatment Plan Need for Continued Stay: Severe depression anxiety, Severe functional impairment Progress Toward Problem(s) and Goals/Treatment Plan: Bipolar disorder mixed severe with psychotic features Cannabis use disorder moderate. CBT Psycho education Supportive therapy Depakote 250 mg PO BID Trazodone 50 mg PO QHS Hydroxyzine 25 mg PO Q6hr prn Metformin 500 mg PO BID Albuterol prn Crestor 10 mg PO QHS Estimated Date of D/C: 10/06/17
[2017-10-02] MEDS: Divalproex 500 mg DR Tab PO SCH (18:44)
[2017-10-03] MEDS: Divalproex 250 mg DR Tab PO SCH (09:31)
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
[2017-10-03] MEDS: Aluminum Hydroxide/Magnesium Hydroxide Susp (30 mL) PO PRN (16:12)
[2017-10-03] MEDS: Divalproex 500 mg DR Tab PO SCH (17:33)
[2017-10-04] MEDS: Divalproex 250 mg DR Tab PO SCH (10:24)
--- NOTE | 2017-10-04 11:24 | PCM.PYCHPN ---
Psychiatric Progress Note - Psychiatric Progress Note Patient seen today, length of contact: 15 min Patient Chief Complaint: "I feel better" Problems Identified/Issues Discussed: The pt is seen, chart reviewed, case discussed with staff. The pt is compliant with medications, she stated that she has vomited a total of 4 times yesterday, none today. Says that she is worried about this and would like something to stop throwing up. She appears to be well groomed, is cooperative, and talkative. She says that she feels fine and that her mood has been improving. Support given, psycho-education provided. After care discussed. Medication Change: Yes Medical Record Reviewed: Yes Mental Status Examination - Cognitive Function Orientation: Person, Place, Situation, Time Memory: Intact Attention: WNL Concentration: WNL Association: WNL Fund of Knowledge: Poor - Mood Mood: Depressed, Anxious - Affect Affect: Broad, Constricted - Speech Speech: Appropriate - Formal Thought Process Formal Thought Process: No Impairment - Suicidal Ideation Suicidal Ideation: No - Homicidal Ideation Homicidal Ideation: No Goal/Treatment Plan - Goal/Treatment Plan Need for Continued Stay: Severe depression anxiety, Severe functional impairment Progress Toward Problem(s) and Goals/Treatment Plan: Bipolar disorder mixed severe with psychotic features Cannabis use disorder moderate. CBT Psycho education Supportive therapy Depakote 500 mg PO daily Depakote 500 mg PO QHS Trazodone 50 mg PO QHS Hydroxyzine 25 mg PO Q6hr prn Metformin 500 mg PO BID Albuterol prn Crestor 10 mg PO QHS Estimated Date of D/C: 10/06/17
[2017-10-04] MEDS: Divalproex 500 mg DR Tab PO SCH (17:20)
[2017-10-05] MEDS: Divalproex 500 mg DR Tab PO SCH ×2 (09:51→17:21)
--- NOTE | 2017-10-05 12:40 | PCM.PYCHPN ---
Psychiatric Progress Note - Psychiatric Progress Note Patient seen today, length of contact: 15 min Patient Chief Complaint: "I feel better" Problems Identified/Issues Discussed: The pt is seen, chart reviewed, case discussed with staff. The pt is compliant with medications. She stated that she has not vomited anymore since two days ago. She is worried that the meds she is receiving in the hospital might be "affecting" her heart and diabetes and would like to talk more about it. Also mentioned that she had an acute anxiety attack in the morning and that she had a pulsating artery on the left side of the head and the thought of the word kill repeating in her head over and over; but she says she doesn't want to hurt anyone and the thought isn't fixated on anyone specific. She appears to be well groomed, is cooperative, and talkative. She says that she feels fine and that her mood has been improving. Support given, psycho-education provided. After care discussed. Medication Change: Yes Medical Record Reviewed: Yes Mental Status Examination - Cognitive Function Orientation: Person, Place, Situation, Time Memory: Intact Attention: WNL Concentration: WNL Association: WNL Fund of Knowledge: Poor - Mood Mood: Depressed, Anxious - Affect Affect: Broad - Speech Speech: Appropriate - Formal Thought Process Formal Thought Process: No Impairment, Hallucinations Psychotic Thoughts and Behaviors: keeps hearing the word "kill" when she says the left side of her head pulsates - Suicidal Ideation Suicidal Ideation: No - Homicidal Ideation Homicidal Ideation: No Goal/Treatment Plan - Goal/Treatment Plan Need for Continued Stay: Severe depression anxiety, Severe functional impairment Progress Toward Problem(s) and Goals/Treatment Plan: Bipolar disorder mixed severe with psychotic features Cannabis use disorder moderate. CBT Psycho education Supportive therapy Depakote 500 mg PO daily Depakote 500 mg PO QHS Trazodone 50 mg PO QHS Hydroxyzine 25 mg PO Q6hr prn Metformin 500 mg PO BID Albuterol prn Crestor 10 mg PO QHS Estimated Date of D/C: 10/06/17
--- NOTE | 2017-10-06 09:40 | PCM.BM ---
<OlegMargo Barrow - Last Filed: 10/06/17 09:39> Treatment Plan Problems - Problems identified on initial assessmt Depression Date Initiated: 09/28/17 Time Initiated: 12:45 Assessment reference: NA Status: Active Treatment assets and liabiliti Patient Assests: adapts well, cooperative, ADL independent, physically healthy, negotiates basic needs, cognitively intact Patient Liabilities: poor support system, substance abuse (THC), medical problems (Diabetes) - Milieu Protocol Maintain good personal hygiene: daily Encourage regular showers, daily Remind patient to perform daily oral care, every shift Assist patient to perform ADL's Conduct patient checks and document Observation sheet: Q15 minutes Maintain personal safety: every shift Educate patient to report safety concerns to staff, every shift Monitor environment for contraband/sharps Medication safety: Monitor for expected outcome, potential side effects: every shift, Assess barriers to learning: every shift, Assess readiness for medication education: every shift Milieu Narrative: Bipolar disorder mixed severe with psychotic features Cannabis use disorder moderate. CBT Psycho education Supportive therapy Depakote 500 mg PO daily Depakote 500 mg PO QHS Trazodone 50 mg PO QHS Hydroxyzine 25 mg PO Q6hr prn Metformin 500 mg PO BID Albuterol prn Crestor 10 mg PO QHS Family Contact Family involvement: Patient does not wish Family/SO involvement Family contact: Patient declines to allow family contact at present - Goals for Treatment Patient goals for treatment: "I want to go to an outpatient." Discharge/Continuing Care - Education Needs Education Needs: Patient Medication, Patient Diagnosis/Disease Process, Patient Coping Skills, Patient Anger Management skills, Patient Placement options, Patient Community resources - Discharge Discharge Criteria: Free of Suicidal thoughts, Normal sleep pattern, Ability to care for self, No longer exhibiting s/s of withdrawal, Reduction of target symptoms Discharge to:: Home, Other - Treatment Team Participation Patient/Family/SO Statement: Bipolar disorder mixed severe with psychotic features Cannabis use disorder moderate. CBT Psycho education Supportive therapy Depakote 500 mg PO daily Depakote 500 mg PO QHS Trazodone 50 mg PO QHS Hydroxyzine 25 mg PO Q6hr prn Metformin 500 mg PO BID Albuterol prn Crestor 10 mg PO QHS Discussed with Family/SO: No Was Patient/Family/SO present at Treatment Team Meeting: Yes Treatment Plan Review - Problem Depression Time Initiated: 12:45 - Discharge / Continuing Care Discharge to:: Home Behavioral Health Services: Intensive Outpatient Health Needs: Medications/Rx, Alcohol/Drug treatment <Lauren Karimi - Last Filed: 10/06/17 11:26> Treatment Plan Review - Problem Depression Date Initiated: 10/06/17 Time Initiated: 11:26 Progress toward outcomes: improved <Luis A Diaz - Last Filed: 10/06/17 12:25> - Diagnosis (1) Major depression Status: Acute Interventions: 10/06/17 12:25 * Assess/adjust medications daily and /or as needed * See patient on an individual basis 7x/week to assess symptoms of depression * Monitor for side effects & effectiveness of medications *
[2017-10-06] MEDS: Divalproex 500 mg DR Tab PO SCH ×2 (09:49→17:15)
--- NOTE | 2017-10-06 16:59 | PCM.PYCHPN ---
Psychiatric Progress Note - Psychiatric Progress Note Patient seen today, length of contact: 17 min Patient Chief Complaint: "I feel anxious" Problems Identified/Issues Discussed: The pt is seen, chart reviewed, case discussed with staff. Pt states that she is feeling better today but is still having bouts of anxiety attacks, mentions that she feels very vulnerable, however when she found out shed be discharged Monday, she started feeling better The pt is compliant with medications and reports no side-effects. Symptoms are improving but needs more time to stabilize. Pt attends groups and activities. Support given, psycho-education provided. After care discussed. Medication Change: Yes Medical Record Reviewed: Yes Mental Status Examination - Cognitive Function Orientation: Person, Place, Situation, Time Memory: Intact Attention: WNL Concentration: WNL Association: WNL Fund of Knowledge: Poor - Mood Mood: Depressed, Anxious - Affect Affect: Broad - Speech Speech: Appropriate - Formal Thought Process Formal Thought Process: No Impairment, Hallucinations - Suicidal Ideation Suicidal Ideation: No - Homicidal Ideation Homicidal Ideation: No Goal/Treatment Plan - Goal/Treatment Plan Need for Continued Stay: Severe depression anxiety, Discharge may exacerbated symptoms, Severe functional impairment Progress Toward Problem(s) and Goals/Treatment Plan: Continue medications Support and psychoeducation daily Attend groups and activities daily After care planning by SHAYNA Estimated Date of D/C: 10/06/17
[2017-10-07 06:40] VITALS: RESP 20
[2017-10-07] MEDS: Divalproex 500 mg DR Tab PO SCH ×2 (10:09→17:12)
--- NOTE | 2017-10-07 21:54 | PCM.PYCHPN ---
Psychiatric Progress Note - Psychiatric Progress Note Patient seen today, length of contact: 15 MIN Patient Chief Complaint: I'M UNCOMFORTABLE BN THE BED, I HAVE A STIFF NECK Problems Identified/Issues Discussed: PT SEEN AND EXAMINED DISCUSSED WITH STAFF DISCUSSED FINISHING TRIMMER TALKED WITH PT ABOUT SLEEP HYGIENE AND MELATONIN Medical Problems: NONE NOTED OR REPORTED Diagnostic Results: REVIEWED DSM 5 Symptoms Update: INSOMNIA MOOD SWINGS Medication Change: No Medical Record Reviewed: Yes Mental Status Examination - Cognitive Function Orientation: Person, Situation, Time Memory: Intact Attention: WNL Concentration: WNL Association: WNL Fund of Knowledge: Poor - Mood Mood: Depressed - Affect Affect: Broad - Speech Speech: Appropriate - Formal Thought Process Formal Thought Process: No Impairment, Hallucinations - Suicidal Ideation Suicidal Ideation: No - Homicidal Ideation Homicidal Ideation: No Goal/Treatment Plan - Goal/Treatment Plan Need for Continued Stay: Severe depression anxiety, Severe functional impairment Progress Toward Problem(s) and Goals/Treatment Plan: BIPOLAR DISORDER DEPAKOTE TRAZODONE SUPPORTIVE PSYCHOTHERAPY PR CBT GROUP MILIEU AND RECREATIONAL THERAPY Estimated Date of D/C: 10/06/17 - Smoking Cessation Smoking Cessation Initiated: No
[2017-10-08] MEDS: Divalproex 500 mg DR Tab PO SCH ×2 (10:44→17:29)
[2017-10-08] MEDS: Aluminum Hydroxide/Magnesium Hydroxide Susp (30 mL) PO PRN (14:07)
--- NOTE | 2017-10-09 00:22 | PCM.PYCHPN ---
Psychiatric Progress Note - Psychiatric Progress Note Patient seen today, length of contact: 15 MIN Patient Chief Complaint: I9 GET VERY DEPRESSED IN THE WINTER TIME Problems Identified/Issues Discussed: PT SEEN AND EXAMINED DISCUSSED WITH STAFF DISCUSSED MANUGRAPHER TALKED WITH PT ABOUT NON PHARMACOLOGICAL TREATMENT FOR DEPRESSION Medical Problems: NONE NOTED OR REPORTED Diagnostic Results: REVIEWED Medication Change: No Medical Record Reviewed: Yes Mental Status Examination - Cognitive Function Orientation: Place, Situation, Time Memory: Intact Attention: WNL Concentration: WNL Association: WNL Fund of Knowledge: WNL - Mood Mood: Depressed, Anxious - Affect Affect: Broad - Speech Speech: Appropriate - Formal Thought Process Formal Thought Process: No Impairment - Suicidal Ideation Suicidal Ideation: No - Homicidal Ideation Homicidal Ideation: No Goal/Treatment Plan - Goal/Treatment Plan Need for Continued Stay: Severe depression anxiety, Severe functional impairment Progress Toward Problem(s) and Goals/Treatment Plan: BIPOLAR DISORDER DEPAKOTE TRAZODONE SUPPORTIVE PSYCHOTHERAPY TX CBT GROUP MILIEU AND RECREATIONAL THERAPY Estimated Date of D/C: 10/06/17 - Smoking Cessation Smoking Cessation Initiated: No
[2017-10-09 06:08] VITALS: BP 120/65; PULSE 79; TEMP 98.6; O2SAT 100
[2017-10-09] MEDS: Divalproex 500 mg DR Tab PO SCH (10:09)
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
== END 2017-10-09 12:45 | disposition home or self-care (01) | DRG 885 ==
LOC: C.ER 09:39 → C.5E 11:59
PROVIDERS: ADMIT Psychiatry & Neurology Psychiatry; ATTEND Psychiatry & Neurology Psychiatry
DX: F31.64 Bipolar disorder, current episode mixed, severe, with psychotic features (principal); F41.1 Generalized anxiety disorder; F43.10 Post-traumatic stress disorder, unspecified; G47.00 Insomnia, unspecified; I10 Essential (primary) hypertension; J45.909 Unspecified asthma, uncomplicated; M41.9 Scoliosis, unspecified; E11.9 Type 2 diabetes mellitus without complications; R45.850 Homicidal ideations; M43.6 Torticollis; Z79.84 Long term (current) use of oral hypoglycemic drugs; Z86.73 Personal history of transient ischemic attack (TIA), and cerebral infarction without residual deficits; Z87.891 Personal history of nicotine dependence; Z91.81 History of falling; F12.10 Cannabis abuse, uncomplicated; E78.00 Pure hypercholesterolemia, unspecified

== ENCOUNTER 2018-03-02 11:35 | Emergency (ER) | payer MEDICAID ==
[2018-03-02 11:36] VITALS: BMI 35.0
[2018-03-02 11:46] VITALS: BP 113/76; PULSE 77; RESP 18; TEMP 98.4; O2SAT 96
[2018-03-02] MEDS ORDERED: Lidocaine 5% Patch TD SCH (12:15)
[2018-03-02] MEDS ORDERED: Lidocaine 5% Patch TD ONE (12:20)
--- NOTE | 2018-03-02 12:45 | RAD ---
Date of service: 03/02/2018 HISTORY: Upper back, muscular back pain COMPARISON: Comparison made with prior chest radiograph dated 04/11/2017. TECHNIQUE: Chest PA and lateral FINDINGS: LUNGS: Poor inspiration with low lung volumes, crowded bronchovascular markings and minor bibasilar atelectasis. PLEURA: No significant pleural effusion identified. No pneumothorax apparent. CARDIOVASCULAR: No aortic atherosclerotic calcification present. Normal cardiac size. No pulmonary vascular congestion. OSSEOUS STRUCTURES: No significant abnormalities. VISUALIZED UPPER ABDOMEN: Normal. OTHER FINDINGS: None. IMPRESSION: Poor inspiration with low lung volumes, crowded bronchovascular markings and mild bibasilar atelectasis.
--- NOTE | 2018-03-02 13:07 | C.PDOC ---
History Of Present Illness 42 year old female, whose past medical history includes cervical radiculopathy, presents to the ED for evaluation of left-sided neck pain that has been radiating down to her chest and arm for 3 days. Patient states her pain is worse with movement. She has been evaluated by her PMD for these symptoms and underwent bloodwork and labs which were negative. Patient reports to the ED because her symptoms have persisted. She denies shortness of breath, diaphoresis, nausea, vomiting, extremity numbness/weakness. Time Seen by Provider: 03/02/18 11:48 Chief Complaint (Nursing): Upper Extremity Problem/Injury History Per: Patient History/Exam Limitations: no limitations Onset/Duration Of Symptoms: Days (3) Current Symptoms Are (Timing): Still Present Quality Of Discomfort: "Pain" Previous Symptoms: Neck Pain (left-sided ) Associated Symptoms: denies: New Weakness, New Numbness Additional History Per: Patient Past Medical History Reviewed: Historical Data, Nursing Documentation, Vital Signs Vital Signs: Last Vital Signs Temp 98.4 F 03/02/18 11:42 Pulse 77 03/02/18 11:42 Resp 18 03/02/18 11:42 BP 113/76 03/02/18 11:42 Pulse Ox 96 03/02/18 11:42 - Medical History PMH: Anemia, Anxiety, Asthma, Back Problems (scoliosis), Bronchitis, CVA (left- sided), Depression, Diabetes (Type 2), Gastritis, HTN, Hypercholesterolemia, Migraine, Peripheral Edema (LEFT LEG), Seizures (6 mo ago), Chronic Pain (back) Denies: Hepatitis, HIV, Chronic Kidney Disease, Sexually Transmitted Disease Surgical History: Endoscopy - [facility] Procedures GROUP PSYCHOTHERAPY (10/01/16) INDIVIDUAL PSYCHOTHERAPY, COGNITIVE-BEHAVIORAL (04/05/16) INDIVIDUAL PSYCHOTHERAPY, SUPPORTIVE (11/14/16) INJECT/INFUSE NEC (05/09/13) MEDICATION MANAGEMENT (10/01/16) Family History: States: Diabetes, Hypertension - Social History Hx Tobacco Use: Yes Hx Alcohol Use: Yes Hx Substance Use: Yes - Immunization History Hx Tetanus Toxoid Vaccination: Yes (2 years ago) Hx Influenza Vaccination: Yes Hx Pneumococcal Vaccination: Yes Review Of Systems Cardiovascular: Positive for: Chest Pain Respiratory: Negative for: Shortness of Breath Gastrointestinal: Negative for: Nausea, Vomiting Musculoskeletal: Positive for: Neck Pain (left-sided ), Arm Pain Neurological: Negative for: Weakness, Numbness Physical Exam - Physical Exam Appears: Non-toxic, No Acute Distress Skin: Normal Color, Warm, Dry Head: Atraumatic, Normacephalic Eye(s): bilateral: Normal Inspection Oral Mucosa: Moist Neck: Paracervical Tenderness (left-sided ), Supple Chest: Symmetrical, No Deformity, No Tenderness Cardiovascular: Rhythm Regular, No Murmur Respiratory: Normal Breath Sounds, No Rales, No Rhonchi, No Wheezing Extremity: Normal ROM, Capillary Refill (less than 2 seconds ) Neurological/Psych: Oriented x3, Normal Speech, Normal Cognition, Normal Motor, Normal Sensation Gait: Steady ED Course And Treatment ECG: Interpreted By Me, Viewed By Me ECG Rhythm: Sinus Rhythm Interpretation Of ECG: Normal Sinus Rhythm at rate 73bpm. Rate From EC O2 Sat by Pulse Oximetry: 96 (on RA) Pulse Ox Interpretation: Normal - Other Rad CXR X-Ray: Viewed By Me, Read By Radiologist Interpretation: Date of service: 03/02/2018. HISTORY: Upper back, muscular back pain. COMPARISON: Comparison made with prior chest radiograph dated 04/11/2017. TECHNIQUE: Chest PA and lateral. FINDINGS: LUNGS: Poor inspiration with low lung volumes, crowded bronchovascular markings and minor bibasilar atelectasis. PLEURA: No significant pleural effusion identified. No pneumothorax apparent. CARDIOVASCULAR: No aortic atherosclerotic calcification present. Normal cardiac size. No pulmonary vascular congestion. OSSEOUS STRUCTURES: No significant abnormalities. VISUALIZED UPPER ABDOMEN: Normal. OTHER FINDINGS: None. IMPRESSION: Poor inspiration with low lung volumes, crowded bronchovascular markings and mild bibasilar atelectasis. Medical Decision Making Medical Decision Making: Progress: Patient is requesting a CXR because she "smokes a lot." CXR ordered and reviewed. Lidoderm TD, Toradol IM and Prednisone PO given. On re-exam, the patient reports improvement of symptoms. Lungs CTA, heart is RRR, abdomen is soft, non-tender and tolerating PO well. Ambulatory in the ED with steady gait. Disposition - Disposition Referrals: Artem Villanueva MD [Staff Provider] - Disposition: HOME/ ROUTINE Disposition Time: 13:08 Condition: STABLE Additional Instructions: Follow up with the medical doctor within 1-2 days. Return if worsened. Prescriptions: Cyclobenzaprine [Flexeril] 5 mg PO TID #21 tab Lidocaine 5% [Lidoderm] 1 each TP DAILY #10 patch Naproxen 375 mg PO BID #20 tablet Instructions: Radiculopathy (DC) Forms: [employer] (French) - Clinical Impression Clinical Impression: Cervical radiculopathy - PA / COMPETITIVE INTELLIGENCE ANALYST / Resident Statement MD/DO has reviewed & agrees with the documentation as recorded. - Scribe Statement The provider has reviewed the documentation as recorded by the Scribe (Kinjal Arriaga) All medical record entries made by the Scribe were at my direction and personally dictated by me. I have reviewed the chart and agree that the record accurately reflects my personal performance of the history, physical exam, medical decision making, and the department course for this patient. I have also personally directed, reviewed, and agree with the discharge instructions and disposition.
== END 2018-03-02 13:34 | disposition home or self-care (01) ==
LOC: C.ER 11:35
DX: M54.12 Radiculopathy, cervical region (principal); I10 Essential (primary) hypertension; F17.210 Nicotine dependence, cigarettes, uncomplicated
CPT/HCPCS: 71046; 96372; 99284; J1885

== ENCOUNTER 2018-04-18 11:37 | Outpatient (CLI) | payer MEDICAID | END 2018-04-18 11:38 | disposition home or self-care (01) | LOC: C.MAMMO 11:37 | DX: N64.52 Nipple discharge (principal) ==

== ENCOUNTER 2018-05-29 18:13 | Emergency (ER) | payer MEDICAID ==
[2018-05-29 18:13] VITALS: BMI 35.0
[2018-05-29 18:23] VITALS: BP 148/98; PULSE 77; RESP 18; TEMP 98.4; O2SAT 99
[2018-05-29] MEDS ORDERED: cefTRIAXone 250 MG, Lidocaine Hydrochloride 1% 1 ML IM STA (19:07)
--- NOTE | 2018-05-29 20:17 | C.PDOC ---
History Of Present Illness 42-year-old female is sent to the ED for evaluation by Dr. Villanueva. Patient was recently tested for gonorrhea and results were positive. Patient has history of penicillin allergy. She denies fever, chills. Time Seen by Provider: 05/29/18 18:46 Chief Complaint (Nursing): Female Genitourinary History Per: Patient History/Exam Limitations: no limitations Onset/Duration Of Symptoms: Hrs Current Symptoms Are (Timing): Still Present Past Medical History Reviewed: Historical Data, Nursing Documentation, Vital Signs Vital Signs: Last Vital Signs Temp 98.4 F 05/29/18 18:18 Pulse 77 05/29/18 18:18 Resp 18 05/29/18 18:18 BP 148/98 H 05/29/18 18:18 Pulse Ox 99 05/29/18 18:18 - Medical History PMH: Anemia, Anxiety, Asthma, Back Problems (scoliosis), Bronchitis, CVA (left- sided), Depression, Diabetes (Type 2), Gastritis, HTN, Hypercholesterolemia, Migraine, Peripheral Edema (LEFT LEG), Seizures (6 mo ago), Chronic Pain (back) Denies: Hepatitis, HIV, Chronic Kidney Disease, Sexually Transmitted Disease Surgical History: Endoscopy - [facility] Procedures GROUP PSYCHOTHERAPY (10/01/16) INDIVIDUAL PSYCHOTHERAPY, COGNITIVE-BEHAVIORAL (04/05/16) INDIVIDUAL PSYCHOTHERAPY, SUPPORTIVE (11/14/16) INJECT/INFUSE NEC (05/09/13) MEDICATION MANAGEMENT (10/01/16) Family History: States: Diabetes, Hypertension - Social History Hx Tobacco Use: Yes Hx Alcohol Use: Yes Hx Substance Use: Yes - Immunization History Hx Tetanus Toxoid Vaccination: Yes (2 years ago) Hx Influenza Vaccination: Yes Hx Pneumococcal Vaccination: Yes Review Of Systems Constitutional: Negative for: Fever, Chills Genitourinary: Positive for: Other (gonorrhea ) Physical Exam - Physical Exam Appears: Non-toxic, No Acute Distress Skin: Normal Color, Warm, Dry Head: Atraumatic, Normacephalic Oral Mucosa: Moist Neck: Supple Extremity: Normal ROM Neurological/Psych: Normal Speech, Normal Cognition ED Course And Treatment O2 Sat by Pulse Oximetry: 99 (on RA) Pulse Ox Interpretation: Normal Progress Note: Will give cephalosporins. Rocephin IM and Zithromax PO given. Will observe patient in the ED for possible reactions. On reassessment, patient is resting comfortably, showing no signs of distress and is stable for discharge with Rx. Patient is advised to f/u with her PMD within 1-2 days for further evaluation. Disposition - Disposition Disposition: HOME/ ROUTINE Disposition Time: 20:16 Condition: STABLE Additional Instructions: Follow up with your PMD within 1-2 days. Return to ED if feel worse. Instructions: Sexually-Transmitted Diseases (DC) Forms: [employer] (Cuban) - Clinical Impression Clinical Impression: STD (female) - PA / CONSUMER AFFAIRS DIRECTOR / Resident Statement MD/DO has reviewed & agrees with the documentation as recorded. - Scribe Statement The provider has reviewed the documentation as recorded by the Scribe (Kinjal Arriaga) All medical record entries made by the Scribe were at my direction and personally dictated by me. I have reviewed the chart and agree that the record accurately reflects my personal performance of the history, physical exam, medical decision making, and the department course for this patient. I have also personally directed, reviewed, and agree with the discharge instructions and disposition.
== END 2018-05-29 20:25 | disposition home or self-care (01) ==
LOC: C.ER 18:13
DX: A64 Unspecified sexually transmitted disease (principal)
CPT/HCPCS: 96372; 99283; J0696